=== PATIENT | female | born 1970 | race Caucasian/White ===

== ENCOUNTER 2016-12-21 12:53 | Outpatient (CLI) | payer MEDICARE | END 2016-12-21 12:54 | disposition critical access hospital (66) | LOC: EMS 12:53 | PROVIDERS: ATTEND Surgery | DX: R60.0 Localized edema (principal); M79.605 Pain in left leg; M79.604 Pain in right leg | CPT/HCPCS: A0425; A0429 ==

== ENCOUNTER 2016-12-21 13:10 | Inpatient (IN) | payer MEDICARE ==
[2016-12-21] MEDS ORDERED: FUROSEMIDE 40 MG/4 ML VIAL IVP STA (13:40)
--- NOTE | 2016-12-21 13:43 | ED Physician Documentation ---
History of Present Illness - Stated complaint Stated Complaint: JANELL LEG PX - Chief complaint Chief Complaint: Ext Problem - History obtained from History obtained from: Patient - History of Present Illness Timing: Other (This is a 46-year-old woman who presents by ambulance. She has a history of gastric bypass and multiple other abdominal surgeries and chronic pedal edema, she is visiting here from [place]. She states she is often hospitalized for a variety of reasons, because of the trip out and being in a chair her chronic pedal edema is much worse and she is unable to walk or bear weight. She is required a [address] here. She does have some dyspnea with this.) Review of Systems Ten Systems: 10 systems reviewed and negative Constitutional: denies: Fever, Chills Cardiac: reports: Pedal edema, Calf pain. denies: Chest pain / pressure, Palpitations Respiratory: reports: Dyspnea. denies: Cough GI: denies: Abdominal Pain, Nausea : denies: Dysuria PD PAST MEDICAL HISTORY - Past Medical History Past Medical History: Yes Other Past Medical History: Firbomyalgia - Past Surgical History Past Surgical History: Yes General: Bowel surgery, Gastric surgery - Present Medications Home Medications: Ambulatory Orders Medication Instructions Recorded Confirmed Furosemide [Lasix] 1 tab PO DAILY 12/21/16 12/21/16 Morphine Sulfate in 0.9 % NaCl 30 mg PO BID 12/21/16 12/21/16 [Morphine-Ns 30 mg/30 ml] Pregabalin [Lyrica] 200 mg PO DAILY 12/21/16 12/21/16 - Allergies Allergies/Adverse Reactions: Allergies Allergy/AdvReac Type Severity Reaction Status Date / Time No Known Drug Allergies Allergy Verified 12/21/16 13:35 - Social History Does the pt drink ETOH?: No Does the pt have substance abuse?: No - Family History Family history: reports: Non contributory PD ED PE NORMAL - Vitals Vital signs reviewed: Yes - General General: Alert and oriented X 3, No acute distress, Other (Sequela of prior weight loss) - HEENT HEENT: PERRL, EOMI - Neck Neck: Supple, no meningeal sign, No bony TTP - Cardiac Cardiac: RRR, No murmur - Respiratory Respiratory: No respiratory distress, Clear bilaterally - Abdomen Abdomen: Soft, Non tender - Extremities Extremities: Other (Massive lower extremity anasarca up to the inguinal ligaments) - Neuro Neuro: Alert and oriented X 3, Normal speech - Psych Psych: Normal mood, Normal affect Results - Vitals Vitals: Vital Signs - 24 hr 12/21/16 13:11 Temperature 36.4 C L Heart Rate 78 Respiratory 16 Rate Blood Pressure 103/72 O2 Saturation 100 Oxygen O2 Source Room air - Labs Labs: Laboratory Tests 12/21/16 12/21/16 13:40 13:40 WBC 7.9 RBC 4.48 Hgb 12.8 Hct 38.7 MCV 86.6 MCH 28.7 MCHC 33.2 RDW 15.2 H Plt Count 213 MPV 9.1 Neut # 5.4 Lymph # 2.1 [place] # 0.4 Eos # 0.0 Baso # 0.0 Absolute Nucleated RBC 0.00 Nucleated RBCs 0.0 Sodium 129 L Potassium 4.2 Chloride 96 L Carbon Dioxide 26 Anion Gap 7.0 BUN 11 Creatinine 0.6 Estimated GFR (MDRD) 107 Glucose 112 H Calcium 7.7 L Magnesium 1.7 Total Bilirubin 0.9 AST 27 ALT 54 Alkaline Phosphatase 118 Total Protein 4.3 L Albumin 1.3 L Globulin 3.0 Albumin/Globulin Ratio 0.4 L Lipase 12 L Procedures - General procedure General procedure: She was difficult for IV access, I personally placed a long 20-gauge IV in the deep right brachial vein using real-time ultrasound guidance which aliyah blood easily and flushed well. PD MEDICAL DECISION MAKING - ED course ED course: 46-year-old woman [place] of state presents with anasarca, likely due mostly to hypoalbuminemia from prior gastric bypass. The anasarca is so bad that she is unable to walk her functionary basically even transfer without assistance. She was administered IV Lasix and albumin. Called to the hospitalist for admission at 2:40 PM. Departure - Departure Disposition: 66 [facility] DC/Xfer Clinical Impression: Anasarca, Hypoalbuminemia due to protein-calorie malnutrition Condition: Serious
[2016-12-21] MEDS ORDERED: FUROSEMIDE 40 MG/4 ML VIAL ONE (13:47)
[2016-12-21 13:49] LABS: BASOPHILS % (AUTO) 0.6 %; EOSINOPHILS % (AUTO) 0.3 %; HCT - HEMATOCRIT 38.7 % (37.0-47.0); HGB - HEMOGLOBIN 12.8 g/dL (12.0-16.0); LYMPHOCYTES # (AUTO) 2.1 10^3/uL (1.5-3.5); MEAN CORPUSCULAR HEMOGLOBIN 28.7 pg (27.0-31.0); MEAN CORPUSCULAR HGB CONC 33.2 g/dL (32.0-36.0); MEAN CORPUSCULAR VOLUME 86.6 fL (81.0-99.0); MEAN PLATELET VOLUME 9.1 fL (7.9-10.8); MONOCYTES # (AUTO) 0.4 10^3/uL (0.0-1.0); MONOCYTES % (AUTO) 4.5 %; NEUTROPHILS # (AUTO) 5.4 10^3/uL (1.5-6.6); NEUTROPHILS % (AUTO) 68.6 %; RED BLOOD COUNT 4.48 10^6/uL (4.20-5.40); RED CELL DISTRIBUTION WIDTH 15.2 % (12.0-15.0); UNCORRECTED WHITE BLOOD COUNT 7.9 x10^3/uL; WHITE BLOOD COUNT 7.9 x10^3/uL (4.8-10.8)
[2016-12-21 14:09] LABS: ALBUMIN/GLOBULIN RATIO 0.4 (1.0-2.2); BILIRUBIN,TOTAL 0.9 mg/dL (0.2-1.0); CALCIUM 7.7 mg/dL (8.5-10.3); CREATININE 0.6 mg/dL (0.4-1.0); MAGNESIUM 1.7 mg/dL (1.7-2.8); POTASSIUM 4.2 mmol/L (3.5-5.0); TOTAL PROTEIN 4.3 g/dL (6.7-8.2)
[2016-12-21] MEDS ORDERED: ALBUMIN 25% 50 ML IV STA (14:18)
[2016-12-21] MEDS ORDERED: HYDROcod/ACETAM 5/325 MG TABLET PO PRN (15:12)
[2016-12-21] MEDS ORDERED: ACETAMINOPHEN 325 MG TABLET PO PRN (15:12)
[2016-12-21 15:43] LABS: INR 1.7 (0.8-1.2)
--- NOTE | 2016-12-21 17:28 | XRAY Preliminary Report ---
Exam: XR Chest 2 View PA/LAT IMPRESSION: There appears to be a right upper lobe pulmonary nodule measuring 1 cm. Differential incl udes overlapping structures. A chest CT is recommended to further evaluate for possible malignancy. O therwise, no acute pulmonary findings are seen. [facility] SITE ID: [id number]
--- NOTE | 2016-12-21 17:30 | XRAY Report ---
EXAM: CHEST RADIOGRAPHY EXAM DATE: 12/21/2016 04:54 PM. CLINICAL HISTORY: Dyspnea. COMPARISON: None. TECHNIQUE: 2 views. FINDINGS: Lungs/Pleura: There appears to be a right upper lobe pulmonary nodule measuring 1 cm. Differential in cludes overlapping structures. A chest CT is recommended to further evaluate for possible malignancy. Otherwise, no acute pulmonary findings are seen. No pleural effusion or pneumothorax. Mediastinum: Heart and mediastinal contours are unremarkable. Other: Minimal anterior wedging at T8, age indeterminate, appears chronic. IMPRESSION: There appears to be a right upper lobe pulmonary nodule measuring 1 cm. Differential incl udes overlapping structures. A chest CT is recommended to further evaluate for possible malignancy. O therwise, no acute pulmonary findings are seen. [facility] Referring Provider Line: [phone] SITE ID: [id number]
[2016-12-21] MEDS: FUROSEMIDE 40 MG/4 ML VIAL IVP SCH (17:33)
[2016-12-21] MEDS: SODIUM CHLORIDE FLUSH 0.9% 10 ML SYRINGE IVP SCH (17:33)
[2016-12-21] MEDS ORDERED: MECLIZINE 12.5 MG TABLET PO PRN (17:43)
[2016-12-21 19:03] LABS: BILIRUBIN,URINE NEGATIVE (NEGATIVE)
[2016-12-21 19:05] LABS: UA CHARGE (STRIP ONLY) YES; UR CULTURE IF IND NOT INDICATED
[2016-12-21] MEDS: POTASSIUM CHLORIDE 20 MEQ/15 ML UDC PO SCH ×2 (20:10→20:57)
[2016-12-21] MEDS ORDERED: MIN OIL/DIMETHICON/COCONUT OIL 92 GM TUBE TOP ONE (20:30)
[2016-12-21] MEDS ORDERED: MORPHINE IR 15 MG TABLET PO SCH (21:00)
[2016-12-21] MEDS ORDERED: PREGABALIN 100 MG CAPSULE PO SCH (21:00)
[2016-12-21] MEDS: FERROUS SULFATE 325 MG TABLET PO SCH (21:09)
[2016-12-21] MEDS: RIVAROXABAN 10 MG TABLET PO SCH (21:09)
[2016-12-21] MEDS: CHOLECALCIFEROL 400 UNIT TABLET PO SCH (21:09)
[2016-12-21] MEDS: AMITRIPTYLINE 25 MG TABLET PO SCH (21:09)
[2016-12-21] MEDS: CALCIUM CARBONATE CHEW 500 MG TABLET PO SCH (21:10)
[2016-12-21] MEDS: DOCUSATE SODIUM 100 MG CAPSULE PO SCH (21:10)
[2016-12-21] MEDS: traZODone 50 MG TABLET PO SCH (21:19)
[2016-12-22] MEDS: HYDROcod/ACETAM 10 MG/325 MG TABLET PO PRN ×3 (01:07→23:48)
[2016-12-22 06:21] LABS: BASOPHILS # (AUTO) 0.1 10^3/uL (0.0-0.1); BASOPHILS % (AUTO) 0.6 %; EOSINOPHILS % (AUTO) 0.2 %; HCT - HEMATOCRIT 34.2 % (37.0-47.0); HGB - HEMOGLOBIN 11.2 g/dL (12.0-16.0); LYMPHOCYTES # (AUTO) 2.7 10^3/uL (1.5-3.5); MEAN CORPUSCULAR HEMOGLOBIN 28.5 pg (27.0-31.0); MEAN CORPUSCULAR HGB CONC 32.7 g/dL (32.0-36.0); MEAN CORPUSCULAR VOLUME 87.1 fL (81.0-99.0); MEAN PLATELET VOLUME 9.5 fL (7.9-10.8); MONOCYTES # (AUTO) 0.5 10^3/uL (0.0-1.0); MONOCYTES % (AUTO) 4.8 %; NEUTROPHILS # (AUTO) 6.7 10^3/uL (1.5-6.6); NEUTROPHILS % (AUTO) 67.4 %; RED BLOOD COUNT 3.92 10^6/uL (4.20-5.40)
[2016-12-22 06:27] LABS: INR 2.9 (0.8-1.2); PT - PROTHROMBIN TIME 33.4 secs (9.9-12.6)
[2016-12-22] MEDS: FERROUS SULFATE 325 MG TABLET PO SCH ×3 (06:33→23:07)
[2016-12-22] MEDS: PANTOPRAZOLE 40 MG TABLET PO SCH (06:33)
[2016-12-22 06:34] LABS: ALBUMIN/GLOBULIN RATIO 0.6 (1.0-2.2); BILIRUBIN,TOTAL 0.9 mg/dL (0.2-1.0); CALCIUM 7.4 mg/dL (8.5-10.3); CREATININE 0.7 mg/dL (0.4-1.0); POTASSIUM 3.5 mmol/L (3.5-5.0); TOTAL PROTEIN 3.6 g/dL (6.7-8.2)
[2016-12-22] MEDS: FUROSEMIDE 40 MG/4 ML VIAL IVP SCH ×2 (06:36→13:39)
[2016-12-22] MEDS: POTASSIUM CHLORIDE 20 MEQ/15 ML UDC PO SCH (06:37)
[2016-12-22] MEDS: SODIUM CHLORIDE FLUSH 0.9% 10 ML SYRINGE IVP SCH ×3 (06:41→23:19)
[2016-12-22] MEDS ORDERED: ALBUMIN 25% 50 ML IV SCH (06:45)
[2016-12-22] MEDS ORDERED: POLYETHYLENE GLYCOL 3350 17 GM PACKET PO SCH (09:00)
[2016-12-22] MEDS: MORPHINE IR 15 MG TABLET PO SCH ×4 (10:14→23:07)
[2016-12-22] MEDS: PREGABALIN 100 MG CAPSULE PO SCH ×2 (10:15→17:57)
[2016-12-22] MEDS: THIAMINE 100 MG TABLET PO SCH (10:16)
[2016-12-22] MEDS: CHOLECALCIFEROL 400 UNIT TABLET PO SCH ×2 (10:16→23:06)
[2016-12-22] MEDS: FOLIC ACID 1 MG TABLET PO SCH (10:18)
[2016-12-22] MEDS: ONDANSETRON 4 MG/2 ML VIAL IVP PRN (10:24)
[2016-12-22] MEDS: SODIUM CHLORIDE FLUSH 0.9% 10 ML SYRINGE IVP PRN (10:27)
[2016-12-22] MEDS: CALCIUM CARBONATE CHEW 500 MG TABLET PO SCH ×2 (10:27→23:06)
[2016-12-22] MEDS: DOCUSATE SODIUM 100 MG CAPSULE PO SCH ×2 (10:29→23:07)
[2016-12-22] MEDS: POLYETHYLENE GLYCOL 3350 17 GM PACKET PO SCH ×2 (10:31→17:57)
--- NOTE | 2016-12-22 11:25 | PROVIDER PROGRESS NOTE ---
Assessment/Plan - Problem List (1) Anasarca Assessment/Plan: She had 4000 ml neg overnight. Her weight this am is 73.4Kg. She is able to wrestle herself out of bed this am and stand unassisted to get on the scale for a standing weight. Will continue the diuresis. (2) Hypoalbuminemia due to protein-calorie malnutrition Assessment/Plan: She had slight improvement in her albumin to 1.4 from 1.3 Would do 12 hr urine collection for protein, however her qualitative protein is negative son not needed. - Current Meds Current Meds: Current Medications Generic Name Dose Route Start Last Admin Trade Name Freq PRN Reason Stop Dose Admin Acetaminophen/Hydrocodone Bitart 1 tab 12/21/16 15:12 12/22/16 06:33 [place] 10 Mg/325 Mg PO 1 tab Q4HR PRN Administration Pain 8 to 10 Amitriptyline HCl 25 mg 12/21/16 21:00 12/21/16 21:09 Elavil PO 25 mg QPM ARELY Administration Calcium Carbonate/Glycine 500 mg 12/21/16 21:00 12/22/16 10:27 Tums PO 500 mg BID ARELY Administration Cholecalciferol 200 unit 12/21/16 21:00 12/22/16 10:16 Vitamin D3 PO 200 unit BID ARELY Administration Docusate Sodium 100 mg 12/21/16 21:00 12/22/16 10:29 Colace 100mg Capsule PO 100 mg BID ARELY Administration Ferrous Sulfate 325 mg 12/21/16 22:00 12/22/16 06:33 Feosol PO 325 mg TID ARELY Administration Folic Acid 1 mg 12/22/16 09:00 12/22/16 10:18 PO 1 mg DAILY ARELY Administration Furosemide 40 mg 12/21/16 16:00 12/22/16 06:36 Lasix Inj 40 Mg Vial IVP 40 mg BIDDIURETIC ARELY Administration Morphine Sulfate 30 mg 12/22/16 09:00 12/22/16 10:14 Ms Ir PO 30 mg QID ARELY Administration Ondansetron HCl 4 mg 12/21/16 15:12 12/22/16 10:24 Zofran Inj IVP 4 mg Q4HR PRN Administration Nausea / Vomiting Pantoprazole Sodium 40 mg 12/22/16 07:00 12/22/16 06:33 Protonix PO 40 mg QDAC ARELY Administration Polyethylene Glycol 17 gm 12/22/16 09:00 12/22/16 10:31 Miralax PO Not Given 0900,1800 ARELY Pregabalin 200 mg 12/22/16 09:00 12/22/16 10:15 Lyrica PO 200 mg 0900,1800 ARELY Administration Rivaroxaban 20 mg 12/21/16 21:00 12/21/16 21:09 Xarelto PO 20 mg QPM ARELY Administration Sodium Chloride 10 ml 12/21/16 15:12 12/22/16 10:27 Normal Saline Flush 0.9% IVP 10 ml PRN PRN Administration NEEDED PER PROVIDER ORDERS Sodium Chloride 10 ml 12/21/16 22:00 12/22/16 06:41 Normal Saline Flush 0.9% IVP 10 ml Q8HR ARELY Administration Thiamine HCl 100 mg 12/22/16 09:00 12/22/16 10:16 Vitamin B-1 PO 100 mg DAILY ARELY Administration Trazodone HCl 25 mg 12/21/16 21:15 12/21/16 21:19 Desyrel PO 25 mg QPM ARELY Administration - Lab Result Fish Bone Diagrams: 12/22/16 05:40 12/22/16 05:40 - Additional Planning My Orders: My Active Orders 12/21/16 15:10 MISC TEST QUEST AMBIENT [REFLAB] Routine 12/21/16 16:00 FUROSEMIDE INJ 40mg VIAL [LASIX INJ 40 mg VIAL] 40 mg IVP BIDDIURETIC 12/21/16 17:43 Meclizine [Antivert] 25 mg PO TID PRN 12/21/16 21:00 Amitriptyline [Elavil] 25 mg PO QPM Calcium Carbonate [Tums] 500 mg PO BID Cholecalciferol [Vitamin D3] 200 unit PO BID Docusate Sodium 100Mg Capsule [Colace 100Mg Capsule] 100 mg PO BID Rivaroxaban [Xarelto] 20 mg PO QPM 12/21/16 22:00 Ferrous Sulfate [Feosol] 325 mg PO TID 12/22/16 06:26 Miscellaenous Nursing Order [RC] QSHIFT 12/22/16 07:00 Pantoprazole [Protonix] 40 mg PO QDAC 12/22/16 08:00 Potassium Chloride [K-Dur] 20 meq PO TIDWM 12/22/16 09:00 Dietary [Nutrition Consult] [CONS] Routine Folic Acid 1 mg PO DAILY Morphine Ir [Ms Ir] 30 mg PO QID Thiamine [Vitamin B-1] 100 mg PO DAILY 12/22/16 Lunch DIET [Regular Diet] [DIET] 12/23/16 05:00 CBC - COMP BLD CT W/AUTO DIFF [HEME] DAILYLAB COMPREHENSIVE METABOLIC PANEL [CHEM] DAILYLAB PT WITH INR [COAG] DAILYLAB 12/24/16 05:00 CBC - COMP BLD CT W/AUTO DIFF [HEME] DAILYLAB COMPREHENSIVE METABOLIC PANEL [CHEM] DAILYLAB PT WITH INR [COAG] DAILYLAB 12/25/16 05:00 CBC - COMP BLD CT W/AUTO DIFF [HEME] DAILYLAB COMPREHENSIVE METABOLIC PANEL [CHEM] DAILYLAB PT WITH INR [COAG] DAILYLAB Subjective - Subjective Patient Reports: Feeling Better, Resting Comfortably Objective Vital Signs: Vital Signs - 24 hr 12/21/16 12/21/16 12/21/16 16:38 17:10 20:38 Temperature 36.3 C L 36.5 C 36.4 C L Heart Rate 121 H Heart Rate [ 110 H 114 H Brachial] Respiratory 18 20 20 Rate Blood Pressure 97/74 Blood Pressure 105/77 139/67 H [Left Brachial artery] O2 Saturation 100 100 100 12/22/16 12/22/16 12/22/16 01:23 06:30 08:16 Temperature 36.3 C L 36.4 C L 36.5 C Heart Rate Heart Rate [ 108 H 106 H 106 H Brachial] Respiratory 18 18 16 Rate Blood Pressure Blood Pressure 96/72 144/65 H 88/60 L [Left Brachial artery] O2 Saturation 93 100 95 Oxygen O2 Source Room air I&O (Last 24 Hrs): Intake and Output Totals x24h 12/20/16 12/21/16 12/22/16 23:59 23:59 23:59 Intake Total 640 500 Output Total 4720 400 Balance -4080 100 General: Alert, Oriented x3 HEENT: PERRLA, EOMI Neck: No JVD, No thyromegaly Neuro: Alert, Oriented Times 3 Cardiovascular: Regular rate, No murmurs Respiratory: No respiratory distress, Breath sounds nml Abdomen: Normal bowel sounds, Soft, No tenderness Skin: No rashes, No breakdown - Results Results: Laboratory Results WBC 10.0 x10^3/uL (4.8-10.8) 12/22/16 05:40 RBC 3.92 10^6/uL (4.20-5.40) L 12/22/16 05:40 Hgb 11.2 g/dL (12.0-16.0) L 12/22/16 05:40 Hct 34.2 % (37.0-47.0) L 12/22/16 05:40 MCV 87.1 fL (81.0-99.0) 12/22/16 05:40 MCH 28.5 pg (27.0-31.0) 12/22/16 05:40 MCHC 32.7 g/dL (32.0-36.0) 12/22/16 05:40 RDW 15.0 % (12.0-15.0) 12/22/16 05:40 Plt Count 165 10^3/uL (130-450) 12/22/16 05:40 MPV 9.5 fL (7.9-10.8) 12/22/16 05:40 Neut # 6.7 10^3/uL (1.5-6.6) H 12/22/16 05:40 Lymph # 2.7 10^3/uL (1.5-3.5) 12/22/16 05:40 [place] # 0.5 10^3/uL (0.0-1.0) 12/22/16 05:40 Eos # 0.0 10^3/uL (0.0-0.7) 12/22/16 05:40 Baso # 0.1 10^3/uL (0.0-0.1) 12/22/16 05:40 Absolute Nucleated RBC 0.00 x10^3/uL 12/22/16 05:40 Nucleated RBCs 0.0 /100WBC 12/22/16 05:40 PT 33.4 secs (9.9-12.6) H 12/22/16 05:40 INR 2.9 (0.8-1.2) H 12/22/16 05:40 Sodium 134 mmol/L (135-145) L 12/22/16 05:40 Potassium 3.5 mmol/L (3.5-5.0) 12/22/16 05:40 Chloride 99 mmol/L (101-111) L 12/22/16 05:40 Carbon Dioxide 29 mmol/L (21-32) 12/22/16 05:40 Anion Gap 6.0 (6-13) 12/22/16 05:40 BUN 12 mg/dL (6-20) 12/22/16 05:40 Creatinine 0.7 mg/dL (0.4-1.0) 12/22/16 05:40 Estimated GFR (MDRD) 90 (>89) 12/22/16 05:40 Glucose 93 mg/dL (70-100) 12/22/16 05:40 Calcium 7.4 mg/dL (8.5-10.3) L 12/22/16 05:40 Magnesium 1.7 mg/dL (1.7-2.8) 12/21/16 13:40 Total Bilirubin 0.9 mg/dL (0.2-1.0) 12/22/16 05:40 AST 22 IU/L (10-42) 12/22/16 05:40 ALT 43 IU/L (10-60) 12/22/16 05:40 Alkaline Phosphatase 98 IU/L (42-121) 12/22/16 05:40 Total Protein 3.6 g/dL (6.7-8.2) L 12/22/16 05:40 Albumin 1.4 g/dL (3.2-5.5) L 12/22/16 05:40 Globulin 2.2 g/dL (2.1-4.2) 12/22/16 05:40 Albumin/Globulin Ratio 0.6 (1.0-2.2) L 12/22/16 05:40 Lipase 12 U/L (22-51) L 12/21/16 13:40 Urine Color YELLOW 12/21/16 Unknown Urine Clarity CLEAR (CLEAR) 12/21/16 Unknown Urine pH 6.0 PH (5.0-7.5) 12/21/16 Unknown Ur Specific [place] 1.010 (1.002-1.030) 12/21/16 Unknown Urine Protein NEGATIVE mg/dL (NEGATIVE) 12/21/16 Unknown Urine Glucose (UA) NEGATIVE mg/dL (NEGATIVE) 12/21/16 Unknown Urine Ketones NEGATIVE mg/dL (NEGATIVE) 12/21/16 Unknown Urine Occult Blood NEGATIVE (NEGATIVE) 12/21/16 Unknown Urine Nitrite NEGATIVE (NEGATIVE) 12/21/16 Unknown Urine Bilirubin NEGATIVE (NEGATIVE) 12/21/16 Unknown Urine Urobilinogen 0.2 (NORMAL) E.U./dL (NORMAL) 12/21/16 Unknown Ur Leukocyte Esterase NEGATIVE (NEGATIVE) 12/21/16 Unknown Ur Microscopic Review NOT INDICATED 12/21/16 Unknown Urine Culture Comments NOT INDICATED 12/21/16 Unknown
[2016-12-22] MEDS: POTASSIUM CHLORIDE 20 MEQ TABLET PO SCH ×3 (12:09→17:57)
--- NOTE | 2016-12-22 20:05 | HISTORY & PHYSICAL EXAMINATION ---
DATE OF ADMISSION: 12/21/2016 CHIEF COMPLAINT: Leg swelling. IDENTIFYING INFORMATION: The patient's primary source of history appears to be questionable reliabili ty, though cogent, and unclear if complete. Her uncle is there who provides a small amount of additio nal material. There is also information obtained in the handoff from the emergency department bev roger, the patient's history of present illness, all will be used in addition to the data collected karissa mao this visit in evaluation of this person and preparation of the document. HISTORY OF PRESENT ILLNESS: The patient is a 46-year-old female who comes in because she came from [facility] on a train and said she did not move at all, only ate mashed food because she has a special diet, and noted that she had redness and irritation between her legs, a sore, she put Cortaid on it. She came to her uncle's place for a "family reunion." She then noted that she had increased swelling , was there for about 4 days and the swelling got worse and she could not stand, so she was brought i n by ambulance. The patient denies any pain except chronic back pain for which she takes morphine. Th e patient also says standing and walking even makes her short of breath. REVIEW OF SYSTEMS: She denies fever or chills. Denies sore throat. Denies cough. Does not have any ch est pain, palpitations. The patient's rest of the complete review of systems is negative as queried. PAST MEDICAL HISTORY: Remarkable for morbid obesity, fibromyalgia. DVT's and is on a 10a inhibitor. SURGERIES: Gastric bypass. ALLERGIES; NONE KNOWN. MEDICATIONS: 1. Morphine 30 mg 4 times a day. 2. Potassium chloride oral solution 20 meq daily. 3. Iron 325 mg 3 times a day. 4. Thiamine 100 mg daily. 5. Folic acid 1 mg daily. 6. Lasix 20 mg daily. 7. Nexium 40 mg daily. 8. Xarelto 20 mg q. p.m. 9. Meclizine 25 mg t.i.d. p.r.n. 10. DSS 100 mg b.i.d. 11. Vitamin D3 twice a day. 12. Lyrica 200 mg twice a day. 13. Amitriptyline 25 mg at bedtime. PERSONAL AND SOCIAL HISTORY: She does not smoke, does not drink alcohol. She has lived in [place] most of her life. Says she was born in [place], [place]. At age 12 her mother decided to go t [facility] and no longer take care of her daughter and she was on the streets from that point in time odilia heck from family to family. FAMILY HISTORY: Sketchy, but there appears to be stroke, diabetes in the family. PHYSICAL EXAMINATION: VITAL SIGNS: 36.4, 78, 16, 103/72, O2 saturation is 100% on room air. HEENT: The patient appears stated age or older. Eyes: EOM's within normal limits, PERRLA. Nonicteric. Mouth and throat: Moist mucous membranes. Poor dentition. NECK: No lymphadenopathy, no thyromegaly, no bruits. CHEST WALL: Chest wall, nontender. Symmetric. ABDOMEN: Bilaterally abdomen is soft, some mild tenderness diffusely. Bowel sounds are heard. RECTAL/Genital exam not done. BREAST EXAM is not done. EXTREMITIES: She has 3+edema into the thighs. NEURO: Cognition intact. Cranial nerves intact. SKIN: No suspicious lesions except for a blister inside the thigh on the right side. DIAGNOSTICS; Shows a white count of 7.9, 12 and 38 hemoglobin and hematocrit. Platelets are 213, sodi um 129, potassium 4.2, chloride 96, CO2 is 26, BUN 11, creatinine 0.6, glucose 112, calcium 7.7, her albumin she was noted low at 1.3. The patient's liver enzymes were normal. SUMMARY: This is a 46 year old female who has a past medical history of morbid obesity and multiple o ther surgeries she says for corrections. The patient subacutely had multiple hospitalizations for a v ariety of conditions. Recently the patient has a lot of swelling in her legs and lower abdomen and is unable to get up and walk by himself, giving he can only a couple feet even with th assistance of 2 people. DIAGNOSES: 1. Anasarca, 2, Hyponatremia. Will be monitored. Sodium will be replaced as needed with the diuresis. Potassium ma y also be monitored. 3. Chronic pain. 4. Generalized weakness which is at least partly due to the intenseedema. The patient will get diures is, with the low albumin it will likely be more effective with infusion cells, albumin, as well. The patient will get physical therapy, as well. The patient's morbid obesity has already been addressed w ith gastric bypass will have to be investigated if there are other morbidities which are causing her problems. 5. The patient's morbid obesity will not be addressed at this time. 6. Severe protein malnutrition. The patient will have dietary consult due to malnutrition. The patien t needs to have protein. HOSPITAL ISSUES: 1. CODE STATUS, SHE IS FULL CODE. 2. VTE PROPHYLAXIS: Will be the Xarelto. 3. Diet which will be protein supplementation regular diet. The patient insists later that she has to be on a puree diet. 4. Activity, as tolerated. Guided by physical therapy. 5. Tubes and lines which will be peripheral IV at this point, will add in a Cooper catheter. 6. Hospital status: Given the severity of her disease and comorbidities with the hyponatremia, the an asarca, the previous history of DVTs and the ongoing anticoagulation, needs at least 2 mights for det ermination of therapies, therapeutic results an a safe disposition Therefor, she is inpatient status. 7. Expected length of stay is 2 nights. 8: Disposition is excepted to be to home or the place she is living in currently and then to home. JOB #: [id number] EXT JOB #:[id number]
[2016-12-22] MEDS: AMITRIPTYLINE 25 MG TABLET PO SCH (23:06)
[2016-12-22] MEDS: RIVAROXABAN 10 MG TABLET PO SCH (23:07)
[2016-12-22] MEDS: traZODone 50 MG TABLET PO SCH (23:07)
[2016-12-23] MEDS: ONDANSETRON 4 MG/2 ML VIAL IVP PRN ×2 (02:05→18:01)
[2016-12-23] MEDS: SODIUM CHLORIDE FLUSH 0.9% 10 ML SYRINGE IVP PRN (02:06)
[2016-12-23] MEDS: FUROSEMIDE 40 MG/4 ML VIAL IVP SCH ×2 (07:27→16:26)
[2016-12-23] MEDS: SODIUM CHLORIDE FLUSH 0.9% 10 ML SYRINGE IVP SCH ×3 (07:28→18:01)
[2016-12-23] MEDS: FERROUS SULFATE 325 MG TABLET PO SCH ×2 (07:28→13:36)
[2016-12-23] MEDS: PANTOPRAZOLE 40 MG TABLET PO SCH (07:28)
[2016-12-23] MEDS: MORPHINE IR 15 MG TABLET PO SCH ×3 (09:46→21:11)
[2016-12-23] MEDS: PREGABALIN 100 MG CAPSULE PO SCH ×2 (09:46→21:11)
[2016-12-23] MEDS: POLYETHYLENE GLYCOL 3350 17 GM PACKET PO SCH ×2 (09:47→20:41)
[2016-12-23] MEDS: CHOLECALCIFEROL 400 UNIT TABLET PO SCH ×2 (09:48→21:05)
[2016-12-23] MEDS: POTASSIUM CHLORIDE 20 MEQ TABLET PO SCH ×3 (09:48→21:10)
[2016-12-23] MEDS: CALCIUM CARBONATE CHEW 500 MG TABLET PO SCH ×2 (09:48→21:11)
[2016-12-23] MEDS: DOCUSATE SODIUM 100 MG CAPSULE PO SCH ×2 (09:48→21:11)
[2016-12-23] MEDS: FOLIC ACID 1 MG TABLET PO SCH (09:48)
[2016-12-23] MEDS: THIAMINE 100 MG TABLET PO SCH (09:48)
[2016-12-23 14:40] LABS: BASOPHILS # (AUTO) 0.1 10^3/uL (0.0-0.1); BASOPHILS % (AUTO) 1.1 %; EOSINOPHILS % (AUTO) 0.8 %; HCT - HEMATOCRIT 28.8 % (37.0-47.0); HGB - HEMOGLOBIN 9.5 g/dL (12.0-16.0); LYMPHOCYTES # (AUTO) 2.3 10^3/uL (1.5-3.5); LYMPHOCYTES % (AUTO) 40.8 %; MEAN CORPUSCULAR HEMOGLOBIN 28.3 pg (27.0-31.0); MEAN CORPUSCULAR HGB CONC 33.1 g/dL (32.0-36.0); MEAN CORPUSCULAR VOLUME 85.6 fL (81.0-99.0); MEAN PLATELET VOLUME 8.9 fL (7.9-10.8); MONOCYTES # (AUTO) 0.3 10^3/uL (0.0-1.0); MONOCYTES % (AUTO) 6.2 %; NEUTROPHILS # (AUTO) 2.8 10^3/uL (1.5-6.6); NEUTROPHILS % (AUTO) 51.1 %; RED BLOOD COUNT 3.37 10^6/uL (4.20-5.40); UNCORRECTED WHITE BLOOD COUNT 5.6 x10^3/uL; WHITE BLOOD COUNT 5.6 x10^3/uL (4.8-10.8)
[2016-12-23 14:49] LABS: INR 1.3 (0.8-1.2); PT - PROTHROMBIN TIME 14.3 secs (9.9-12.6)
[2016-12-23 14:52] LABS: ALBUMIN/GLOBULIN RATIO 0.6 (1.0-2.2); BILIRUBIN,TOTAL 0.7 mg/dL (0.2-1.0); CALCIUM 7.2 mg/dL (8.5-10.3); CREATININE 0.7 mg/dL (0.4-1.0); POTASSIUM 3.2 mmol/L (3.5-5.0); TOTAL PROTEIN 3.5 g/dL (6.7-8.2)
--- NOTE | 2016-12-23 15:49 | PROVIDER PROGRESS NOTE ---
Assessment/Plan - Problem List (1) Anasarca Assessment/Plan: Raina's swelling is much improved. Her weight gain from yesterday to today is likely erroneous. She refused her lab draw this am so did not give her the am dose of lasix She allowed a blood draw this afternoon and had good GFR but mildly low KCL. She will get her Lasix this afternoon. (2) Hypoalbuminemia due to protein-calorie malnutrition Assessment/Plan: Her albumin remains very low. She is eating better at times but has been somnolent. - Current Meds Current Meds: Current Medications Generic Name Dose Route Start Last Admin Trade Name Freq PRN Reason Stop Dose Admin Amitriptyline HCl 25 mg 12/21/16 21:00 12/22/16 23:06 Elavil PO Not Given QPM ARELY Calcium Carbonate/Glycine 500 mg 12/21/16 21:00 12/23/16 09:48 Tums PO 500 mg BID ARELY Administration Cholecalciferol 200 unit 12/21/16 21:00 12/23/16 09:48 Vitamin D3 PO 200 unit BID ARELY Administration Docusate Sodium 100 mg 12/21/16 21:00 12/23/16 09:48 Colace 100mg Capsule PO 100 mg BID ARELY Administration Folic Acid 1 mg 12/22/16 09:00 12/23/16 09:48 PO 1 mg DAILY ARELY Administration Furosemide 40 mg 12/21/16 16:00 12/23/16 07:27 Lasix Inj 40 Mg Vial IVP Not Given BIDDIURETIC ARELY Ondansetron HCl 4 mg 12/21/16 15:12 12/23/16 02:05 Zofran Inj IVP 4 mg Q4HR PRN Administration Nausea / Vomiting Pantoprazole Sodium 40 mg 12/22/16 07:00 12/23/16 07:28 Protonix PO Not Given QDAC ARELY Polyethylene Glycol 17 gm 12/22/16 09:00 12/23/16 09:47 Miralax PO 17 gm 0900,1800 ARELY Administration Potassium Chloride 20 meq 12/22/16 08:00 12/23/16 13:36 K-Dur PO 20 meq TIDWM ARELY Administration Pregabalin 200 mg 12/22/16 09:00 12/23/16 09:46 Lyrica PO 200 mg 0900,1800 ARELY Administration Rivaroxaban 20 mg 12/21/16 21:00 12/22/16 23:07 Xarelto PO Not Given QPM ARELY Sodium Chloride 10 ml 12/21/16 15:12 12/23/16 02:06 Normal Saline Flush 0.9% IVP 10 ml PRN PRN Administration NEEDED PER PROVIDER ORDERS Sodium Chloride 10 ml 12/21/16 22:00 12/23/16 07:28 Normal Saline Flush 0.9% IVP Not Given Q8HR ARELY Thiamine HCl 100 mg 12/22/16 09:00 12/23/16 09:48 Vitamin B-1 PO 100 mg DAILY ARELY Administration - Lab Result Fish Bone Diagrams: 12/23/16 05:00 12/23/16 14:30 - Additional Planning My Orders: My Active Orders 12/23/16 08:40 CHLAMYDIA/GC RNA TMA [REFLAB] Routine 12/23/16 22:00 Morphine Ir [Ms Ir] 15 mg PO TID 12/24/16 05:00 CBC - COMP BLD CT W/AUTO DIFF [HEME] DAILYLAB COMPREHENSIVE METABOLIC PANEL [CHEM] DAILYLAB PT WITH INR [COAG] DAILYLAB 12/25/16 05:00 CBC - COMP BLD CT W/AUTO DIFF [HEME] DAILYLAB COMPREHENSIVE METABOLIC PANEL [CHEM] DAILYLAB PT WITH INR [COAG] DAILYLAB Subjective - Subjective Patient Reports: Resting Comfortably Nursing Reports: Sedated Objective Vital Signs: Vital Signs - 24 hr 12/22/16 12/22/16 12/22/16 16:22 16:23 18:23 Temperature 36.0 C L Heart Rate [ 106 H Brachial] Respiratory 6 L 8 L Rate Blood Pressure 89/60 L 84/60 L 88/50 L [Left Brachial artery] O2 Saturation 96 99 12/22/16 12/23/16 12/23/16 20:39 00:35 09:27 Temperature 36.6 C 36.4 C L 36.7 C Heart Rate [ 105 H 111 H 98 Brachial] Respiratory 7 L 19 18 Rate Blood Pressure 93/63 92/70 94/59 L [Left Brachial artery] O2 Saturation 98 100 100 Oxygen O2 Source Nasal cannula I&O (Last 24 Hrs): Intake and Output Totals x24h 12/21/16 12/22/16 12/23/16 23:59 23:59 23:59 Intake Total 640 1020 720 Output Total 4720 2950 650 Balance -4080 -1930 70 General: Alert, Cooperative HEENT: EOMI Neck: No JVD, No thyromegaly Neuro: Alert, Speech Slurred Cardiovascular: Regular rate, No murmurs Respiratory: No respiratory distress, Breath sounds nml Abdomen: Normal bowel sounds, Soft - Results Results: Laboratory Results WBC 5.6 x10^3/uL (4.8-10.8) 12/23/16 05:00 RBC 3.37 10^6/uL (4.20-5.40) L 12/23/16 05:00 Hgb 9.5 g/dL (12.0-16.0) L 12/23/16 05:00 Hct 28.8 % (37.0-47.0) L 12/23/16 05:00 MCV 85.6 fL (81.0-99.0) 12/23/16 05:00 MCH 28.3 pg (27.0-31.0) 12/23/16 05:00 MCHC 33.1 g/dL (32.0-36.0) 12/23/16 05:00 RDW 15.0 % (12.0-15.0) 12/23/16 05:00 Plt Count 147 10^3/uL (130-450) 12/23/16 05:00 MPV 8.9 fL (7.9-10.8) 12/23/16 05:00 Neut # 2.8 10^3/uL (1.5-6.6) 12/23/16 05:00 Lymph # 2.3 10^3/uL (1.5-3.5) 12/23/16 05:00 [place] # 0.3 10^3/uL (0.0-1.0) 12/23/16 05:00 Eos # 0.0 10^3/uL (0.0-0.7) 12/23/16 05:00 Baso # 0.1 10^3/uL (0.0-0.1) 12/23/16 05:00 Absolute Nucleated RBC 0.00 x10^3/uL 12/23/16 05:00 Nucleated RBCs 0.0 /100WBC 12/23/16 05:00 PT 14.3 secs (9.9-12.6) H 12/23/16 05:00 INR 1.3 (0.8-1.2) H 12/23/16 05:00 Sodium 133 mmol/L (135-145) L 12/23/16 14:30 Potassium 3.2 mmol/L (3.5-5.0) L 12/23/16 14:30 Chloride 99 mmol/L (101-111) L 12/23/16 14:30 Carbon Dioxide 28 mmol/L (21-32) 12/23/16 14:30 Anion Gap 6.0 (6-13) 12/23/16 14:30 BUN 11 mg/dL (6-20) 12/23/16 14:30 Creatinine 0.7 mg/dL (0.4-1.0) 12/23/16 14:30 Estimated GFR (MDRD) 90 (>89) 12/23/16 14:30 Glucose 105 mg/dL (70-100) H 12/23/16 14:30 Calcium 7.2 mg/dL (8.5-10.3) L 12/23/16 14:30 Magnesium 1.7 mg/dL (1.7-2.8) 12/21/16 13:40 Total Bilirubin 0.7 mg/dL (0.2-1.0) 12/23/16 14:30 AST 28 IU/L (10-42) 12/23/16 14:30 ALT 41 IU/L (10-60) 12/23/16 14:30 Alkaline Phosphatase 94 IU/L (42-121) 12/23/16 14:30 Total Protein 3.5 g/dL (6.7-8.2) L 12/23/16 14:30 Albumin 1.3 g/dL (3.2-5.5) L 12/23/16 14:30 Globulin 2.2 g/dL (2.1-4.2) 12/23/16 14:30 Albumin/Globulin Ratio 0.6 (1.0-2.2) L 12/23/16 14:30 Lipase 12 U/L (22-51) L 12/21/16 13:40 Urine Color YELLOW 12/21/16 Unknown Urine Clarity CLEAR (CLEAR) 12/21/16 Unknown Urine pH 6.0 PH (5.0-7.5) 12/21/16 Unknown Ur Specific [place] 1.010 (1.002-1.030) 12/21/16 Unknown Urine Protein NEGATIVE mg/dL (NEGATIVE) 12/21/16 Unknown Urine Glucose (UA) NEGATIVE mg/dL (NEGATIVE) 12/21/16 Unknown Urine Ketones NEGATIVE mg/dL (NEGATIVE) 12/21/16 Unknown Urine Occult Blood NEGATIVE (NEGATIVE) 12/21/16 Unknown Urine Nitrite NEGATIVE (NEGATIVE) 12/21/16 Unknown Urine Bilirubin NEGATIVE (NEGATIVE) 12/21/16 Unknown Urine Urobilinogen 0.2 (NORMAL) E.U./dL (NORMAL) 12/21/16 Unknown Ur Leukocyte Esterase NEGATIVE (NEGATIVE) 12/21/16 Unknown Ur Microscopic Review NOT INDICATED 12/21/16 Unknown Urine Culture Comments NOT INDICATED 12/21/16 Unknown
[2016-12-23] MEDS: AMITRIPTYLINE 25 MG TABLET PO SCH (21:06)
[2016-12-23] MEDS: RIVAROXABAN 10 MG TABLET PO SCH (21:11)
[2016-12-24 06:18] LABS: BASOPHILS # (AUTO) 0.1 10^3/uL (0.0-0.1); BASOPHILS % (AUTO) 0.8 %; EOSINOPHILS % (AUTO) 0.2 %; HCT - HEMATOCRIT 30.9 % (37.0-47.0); HGB - HEMOGLOBIN 10.2 g/dL (12.0-16.0); LYMPHOCYTES # (AUTO) 2.4 10^3/uL (1.5-3.5); LYMPHOCYTES % (AUTO) 33.1 %; MEAN CORPUSCULAR HEMOGLOBIN 28.6 pg (27.0-31.0); MEAN CORPUSCULAR HGB CONC 33.1 g/dL (32.0-36.0); MEAN CORPUSCULAR VOLUME 86.5 fL (81.0-99.0); MEAN PLATELET VOLUME 9.2 fL (7.9-10.8); MONOCYTES # (AUTO) 0.4 10^3/uL (0.0-1.0); MONOCYTES % (AUTO) 6.2 %; NEUTROPHILS # (AUTO) 4.3 10^3/uL (1.5-6.6); NEUTROPHILS % (AUTO) 59.7 %; RED BLOOD COUNT 3.57 10^6/uL (4.20-5.40); RED CELL DISTRIBUTION WIDTH 15.1 % (12.0-15.0); UNCORRECTED WHITE BLOOD COUNT 7.1 x10^3/uL; WHITE BLOOD COUNT 7.1 x10^3/uL (4.8-10.8)
[2016-12-24 06:21] LABS: INR 1.3 (0.8-1.2); PT - PROTHROMBIN TIME 14.6 secs (9.9-12.6)
[2016-12-24 06:27] LABS: ALBUMIN/GLOBULIN RATIO 0.6 (1.0-2.2); BILIRUBIN,TOTAL 0.9 mg/dL (0.2-1.0); CALCIUM 6.9 mg/dL (8.5-10.3); CREATININE 0.6 mg/dL (0.4-1.0); POTASSIUM 3.1 mmol/L (3.5-5.0); TOTAL PROTEIN 3.5 g/dL (6.7-8.2)
[2016-12-24] MEDS: FUROSEMIDE 40 MG/4 ML VIAL IVP SCH (06:57)
[2016-12-24] MEDS: PANTOPRAZOLE 40 MG TABLET PO SCH (06:57)
[2016-12-24] MEDS: MORPHINE IR 15 MG TABLET PO SCH (06:57)
[2016-12-24] MEDS: SODIUM CHLORIDE FLUSH 0.9% 10 ML SYRINGE IVP SCH ×2 (06:57→08:28)
[2016-12-24] MEDS: PREGABALIN 100 MG CAPSULE PO SCH (08:20)
[2016-12-24] MEDS: THIAMINE 100 MG TABLET PO SCH (08:21)
[2016-12-24] MEDS: CHOLECALCIFEROL 400 UNIT TABLET PO SCH (08:21)
[2016-12-24] MEDS: FOLIC ACID 1 MG TABLET PO SCH (08:22)
[2016-12-24] MEDS: DOCUSATE SODIUM 100 MG CAPSULE PO SCH (08:22)
[2016-12-24] MEDS: CALCIUM CARBONATE CHEW 500 MG TABLET PO SCH (08:22)
[2016-12-24] MEDS: POLYETHYLENE GLYCOL 3350 17 GM PACKET PO SCH (08:23)
[2016-12-24] MEDS: POTASSIUM CHLORIDE 20 MEQ TABLET PO SCH ×2 (08:24→11:57)
[2016-12-24] MEDS ORDERED: SODIUM CHLORIDE 0.9% 500 ML IV ONE (08:25)
[2016-12-24] MEDS: POTASSIUM CHLOR 10 MEQ/100 ML 100 ML IV SCH ×2 (08:33→10:40)
[2016-12-24 12:22] VITALS: BP 91/69
--- NOTE | 2016-12-24 13:06 | Discharge Plan ---
Discharge Plan Disposition: Home, Self Care Condition: Fair Prescriptions: Furosemide [Lasix] 40 mg PO DAILY #30 tablet Diet: Soft Shower Restrictions: No Driving Restrictions: Yes (no driving) Weight Bearing: Full Weight Additional Instructions or Follow Up instructions: Make an appt to see a provider at one of the community clinics. Slowly increase your activity. Restrict your fluid in take to 32 oz. total per 24 hours. until you get the new lasix 4o mg prescription filled take 2 of your 20 mg pills in the am. Thank you Dr. Pederson No Smoking: If you smoke, Please STOP! Call for help.
--- NOTE | 2016-12-27 18:48 | DISCHARGE SUMMARY ---
DATE OF ADMISSION: 12/21/2016 DATE OF DISCHARGE: 12/24/2016 ADMISSION DIAGNOSES: 1. Anasarca. 2. Hyponatremia. 3. Chronic pain. 4. Generalized weakness. 5. Morbid obesity. 6. Rare protein malnutrition. SPECIAL PROCEDURES: None. CONSULTATIONS: None. HOSPITAL COURSE: Initial presentation, hospital emergency evaluation, copy of the hospitalist plan is well described in the History and Physical, see copy of same. SUMMARY: This is a 46-year-old female who has a past medical history of morbid obesity, multiple surg eries including gastric surgery requiring corrections. The patient recently has also had increasing m edical problems. Recently the patient has a lot of swelling in her legs, lower abdomen, is unable to get up and walk by herself, and she can only manage a couple feet even with the assistance of 2 peopl e. The patient had a diuresis initiated, her sodium improved. She in the first day lost over 4 kg and th e second day another 2 kg and her weight which was inconsistently measured is not congruent with the amount of perceived weight loss in her legs which she had 3+ edema up to the upper thighs and her fee t and ankles were nearly indistinguishable, by the time of discharge could see clear ankle bones and she admitted that her swelling was much improved. The patient is examined on the day of discharge by inspection only as she refused any further interve ntion, was resistant to even further discussion of her condition and subsequent discharge plan. The patient, however, expressed very vehemently that she did not want to go to a [facility] for further care and she said she had to learn to walk all over again, though this was an exagge ration because even the day after her admission she was able to get out of bed by herself clearly wit h some effort, stand by herself, and take a couple of small steps to a standing scale, get off the sc homero and back on the scale and then back into bed. She refused any touching or help whatsoever. The day of discharge examination vital signs 36.7, 191/69, 18, 100% room air saturation. EYES: EOMs within normal limits. PERRLA. Nonicteric. MOUTH AND THROAT: Somewhat dry. NECK: No lymphadenopathy noted. No heart, lung, or abdomen exam except by inspection and same with her extremities. LABORATORY DATA: The patient had white count 7.1, 10 and 31 hemoglobin and hematocrit, 147 platelets, INR is 1.3. She is on Xarelto for previous PE and prevention. Sodium 137, potassium 3.1, chloride 10 0, CO2 is 31, BUN 12, creatinine 0.6, glucose is 88, calcium is 6.9. However, the albumin is 1.3 for a corrected albumin of 8.3. The patient's liver enzymes were normal. ALLERGIES: NO ALLERGIES. DISCHARGE MEDICATIONS: 1. Morphine 30 mg IR 4 times a day. 2. Potassium chloride 20 meq daily. 3. Iron 325 mg 3 times a day. 4. Thiamine 100 mg a day. 5. Folic acid 1 mg a day. 6. Nexium 40 mg a day. 7. Xarelto 20 mg a day. 8. Meclizine 25 mg 3 times a day as needed. 9. DSS 100 mg twice a day. 10. Calcium carbonate and vitamin D 1 b.i.d. 11. Lyrica 200 mg twice a day. 12. Amitriptyline 25 mg at bedtime. 13. Lasix 40 mg a day. The patient is to followup with a local clinic if she stays in the area. Plan of discharge activity was extensive, corroboration from case management, social work, 45 minutes . JOB #: [id number] EXT JOB #:[id number]
== END 2016-12-24 14:00 | disposition home or self-care (01) | DRG 641 ==
LOC: ED 13:10 → MS 15:12
PROVIDERS: ADMIT Internal Medicine; ATTEND Internal Medicine
DX: E43 Unspecified severe protein-calorie malnutrition (principal); E46 Unspecified protein-calorie malnutrition; E87.1 Hypo-osmolality and hyponatremia; Z68.26 Body mass index [BMI] 26.0-26.9, adult; G89.29 Other chronic pain; M54.9 Dorsalgia, unspecified; M79.7 Fibromyalgia; R53.1 Weakness; Z98.84 Bariatric surgery status
CPT/HCPCS: 36415; 51702; 71020; 80053; 81001; 81003; 81599; 83690; 83735; 85025; 85610; 87086; 87491; 87591; 96374; 96375; 99284; 99285

== ENCOUNTER 2016-12-26 16:17 | Outpatient (CLI) | payer MEDICARE | END 2016-12-26 16:18 | disposition critical access hospital (66) | LOC: EMS 16:17 | PROVIDERS: ATTEND Surgery | DX: R68.83 Chills (without fever) (principal); R11.2 Nausea with vomiting, unspecified; R19.7 Diarrhea, unspecified | CPT/HCPCS: A0425; A0427 ==

== ENCOUNTER 2016-12-26 16:37 | Inpatient (IN) | payer MEDICARE ==
--- NOTE | 2016-12-26 16:53 | ED Physician Documentation ---
PD HPI NVD - Stated complaint Stated Complaint: N/D - Chief complaint Chief Complaint: General - History obtained from History obtained from: Patient, EMS - History of Present Illness Timing - onset: How many days ago (has had nausea and unable to eat the past couple of days. She was here a week ago and admitted for 2 days due to weakness , leg edema, and low albumin/potassium due to malabsoprtion. She felt more like baseline at time of discharge but was weaker and with nausea/minimal intake the past couple days again. Feeling generally weak and fell to ground today at a restaurant and was unable to get back up. EMS brought her here.) Timing - duration: Days Timing - details: Gradual onset Associated symptoms: Loss of appetite, Other (nausea and did have vomiting twice today. Soft stool but has had that since small bowel partial resection about 6 weeks ago.). No: Fever, Abdominal pain, Chest pain, Hematemesis, Hematochezia, Dysuria, Hematuria Contributing factors: Other (prior gastric bypass in the past, and also with small bowel surgery partial resection recent). No: Sick contact, Bad food Improved by: No: Vomiting, BM, Position Worsened by: Eating. No: Position Similar symptoms before: Treatment (IV fluids and medications.) Recently seen: Admitted (since prior discharge, has had nausea, poor intake, general weakness. Today collapsed/legs gave out and unable to walk/stand.) Review of Systems Constitutional: denies: Fever, Chills, Myalgias Nose: denies: Rhinorrhea / runny nose, Congestion Throat: denies: Sore throat Cardiac: denies: Chest pain / pressure Respiratory: denies: Dyspnea, Cough GI: reports: Nausea, Vomiting. denies: Abdominal Pain, Diarrhea, Bloody / black stool : denies: Dysuria, Frequency Skin: denies: Rash, Lesions Neurologic: reports: Generalized weakness. denies: Focal weakness, Numbness, Near syncope, Altered mental status, Headache, Head injury Endocrine: reports: Weight loss Immunocompromised: denies: Immunocompromised PD PAST MEDICAL HISTORY - Past Medical History Cardiovascular: Deep vein thrombosis, Atrial flutter, Murmur Respiratory: Pneumonia, Shortness of breath Neuro: TIA, Headache/migraine, Head injury, Other Endocrine/Autoimmune: None GI: None : Retention HEENT: Chronic vision loss Psych: Post traumatic stress disorder, Claustrophobia Musculoskeletal: Osteoarthritis, Fibromyalgia, Fatigue Derm: None - Past Surgical History Past Surgical History: Yes General: Cholecystectomy, Appendectomy, Bowel surgery, Gastric surgery /PILOT STEAM YACHT: section - Present Medications Home Medications: Ambulatory Orders Medication Instructions Recorded Confirmed Amitriptyline HCl 25 mg PO QPM 12/21/16 12/21/16 Calcium Carbonate/Vitamin D3 1 each PO BID 12/21/16 12/21/16 [Calcium 500-Vit D3 200 Tablet] Docusate Sodium [Stool Softener] 100 mg PO BID 12/21/16 12/21/16 Esomeprazole Magnesium 40 mg PO DAILY 12/21/16 12/21/16 Ferrous Sulfate 325 mg PO TID 12/21/16 12/21/16 Folic Acid 1 mg PO DAILY 12/21/16 12/21/16 Meclizine HCl 25 mg PO TID PRN 12/21/16 12/21/16 Morphine Sulfate 60 mg PO BID 12/21/16 12/21/16 Potassium Chloride Oral Soln 20 meq PO DAILY 12/21/16 12/21/16 Pregabalin [Lyrica] 200 mg PO BID 12/21/16 12/21/16 Rivaroxaban [Xarelto] 20 mg PO QPM 12/21/16 12/21/16 Thiamine HCl [Vitamin B-1] 100 mg PO DAILY 12/21/16 12/21/16 Furosemide [Lasix] 40 mg PO DAILY #30 tablet 12/24/16 - Allergies Allergies/Adverse Reactions: Allergies Allergy/AdvReac Type Severity Reaction Status Date / Time No Known Drug Allergies Allergy Verified 12/26/16 16:52 - Social History Smoking Status: Former smoker Does the pt drink ETOH?: No Does the pt have substance abuse?: No PD ED PE NORMAL - Vitals Vital signs reviewed: Yes - General General: Alert and oriented X 3, Well developed/nourished, Other (pale and thin) - HEENT HEENT: Atraumatic, Pharynx benign - Neck Neck: Supple, no meningeal sign, No adenopathy - Cardiac Cardiac: RRR (mild tachycardia), No murmur - Respiratory Respiratory: Clear bilaterally - Abdomen Abdomen: Soft, No organomegaly, Other (tenderness mid abdomen without guarding, no percussion tenderness. Bowel sounds some increased. ) - Female Female : Deferred - Rectal Rectal: Deferred - Back Back: No CVA TTP - Derm Derm: No: Normal color (pale color) - Extremities Extremities: No calf tenderness / cord, Other (3+ edema in both legs up to knees , pitting, with tenderness) - Neuro Neuro: Alert and oriented X 3, No motor deficit, Normal speech - Psych Psych: Normal mood Results - Vitals Vitals: Vital Signs - 24 hr 12/26/16 12/26/16 12/26/16 16:47 18:46 20:22 Temperature 36.3 C L 36.6 C Heart Rate 102 H 96 100 Respiratory 18 16 22 Rate Blood Pressure 113/72 115/75 95/62 O2 Saturation 100 99 101 H Oxygen O2 Source [Without Activity] Room air O2 Source Room air - Labs Labs: Laboratory Tests 12/26/16 12/26/16 18:05 18:05 WBC 5.0 RBC 3.04 L Hgb 8.7 L Hct 26.5 L MCV 87.0 MCH 28.5 MCHC 32.8 RDW 15.3 H Plt Count 143 MPV 9.8 Neut # 2.7 Lymph # 1.9 [place] # 0.4 Eos # 0.0 Baso # 0.0 Absolute Nucleated RBC 0.00 Nucleated RBCs 0.1 Sodium 135 Potassium 2.8 L Chloride 99 L Carbon Dioxide 29 Anion Gap 7.0 BUN 11 Creatinine 0.8 Estimated GFR (MDRD) 77 L Glucose 79 Calcium 6.7 L Magnesium 1.5 L Total Bilirubin 0.8 AST 32 ALT 47 Alkaline Phosphatase 74 Total Protein 3.4 L Albumin 1.2 L Globulin 2.2 Albumin/Globulin Ratio 0.5 L Lipase 13 L PD MEDICAL DECISION MAKING - ED course Complexity details: reviewed results (Low Potassium and is anemic, lower than recent. ), considered differential (given IV fluids for hydration. Albumin IV to help with edema. Her potassium is low, so given IV dose. Can try PO dose as well. She is able to take some PO here small amounts after antiemetic. She was unable to stand/walk unassisted at this time. ), d/w patient, d/w automobile sales consultant ( Dr. Paniagua, Hospitalist) Departure - Departure Disposition: ED Place in Observation Clinical Impression: Hypoalbuminemia due to protein-calorie malnutrition, Hypokalemia, Generalized muscle ache, Unable to walk Condition: Stable Record reviewed to determine appropriate education?: Yes Discharge Date/Time: 12/26/16 22:00
[2016-12-26] MEDS ORDERED: HYDROmorphone 1 MG/ML SYRINGE IVP STA (17:17)
[2016-12-26] MEDS ORDERED: SODIUM CHLORIDE 0.9% 1,000 ML IV ONE (17:17)
[2016-12-26] MEDS ORDERED: ONDANSETRON 4 MG/2 ML VIAL IVP STA (17:17)
[2016-12-26] MEDS ORDERED: HYDROmorphone 1 MG/ML SYRINGE ONE (17:38)
[2016-12-26] MEDS ORDERED: ONDANSETRON 4 MG/2 ML VIAL ONE (17:38)
[2016-12-26] MEDS ORDERED: ALBUMIN 25% 50 ML IV STA (18:17)
[2016-12-26 18:18] LABS: BASOPHILS % (AUTO) 0.5 %; EOSINOPHILS % (AUTO) 0.2 %; HCT - HEMATOCRIT 26.5 % (37.0-47.0); HGB - HEMOGLOBIN 8.7 g/dL (12.0-16.0); LYMPHOCYTES # (AUTO) 1.9 10^3/uL (1.5-3.5); LYMPHOCYTES % (AUTO) 37.9 %; MEAN CORPUSCULAR HEMOGLOBIN 28.5 pg (27.0-31.0); MEAN CORPUSCULAR HGB CONC 32.8 g/dL (32.0-36.0); MEAN PLATELET VOLUME 9.8 fL (7.9-10.8); MONOCYTES # (AUTO) 0.4 10^3/uL (0.0-1.0); MONOCYTES % (AUTO) 7.3 %; NEUTROPHILS # (AUTO) 2.7 10^3/uL (1.5-6.6); NEUTROPHILS % (AUTO) 54.1 %; NUCLEATED RED BLOOD CELLS AUTO 0.1 /100WBC; RED BLOOD COUNT 3.04 10^6/uL (4.20-5.40); RED CELL DISTRIBUTION WIDTH 15.3 % (12.0-15.0)
[2016-12-26 18:31] LABS: ALBUMIN/GLOBULIN RATIO 0.5 (1.0-2.2); BILIRUBIN,TOTAL 0.8 mg/dL (0.2-1.0); CALCIUM 6.7 mg/dL (8.5-10.3); CREATININE 0.8 mg/dL (0.4-1.0); MAGNESIUM 1.5 mg/dL (1.7-2.8); POTASSIUM 2.8 mmol/L (3.5-5.0); TOTAL PROTEIN 3.4 g/dL (6.7-8.2)
[2016-12-26] MEDS ORDERED: POTASSIUM CHLOR 10 MEQ/100 ML 100 ML IV ONE ×2 (18:43→18:59)
--- NOTE | 2016-12-26 20:42 | HISTORY & PHYSICAL EXAMINATION ---
Chief Complaint - Chief Complaint Chief Complaint: Nausea and weakness History of Present Illness - Admitted From Admitted From:: emergency Department - History Obtained From Records Reviewed: EMR History obtained from: patient and records - History of Present Illness HPI Comment/Other: this patient presents to the emergency department after being discharged a few days ago. She complains of continued nausea, generalized weakness. she reports that when she left here a few days ago, that all of her medications were locked in her niece's trunk, and that she has not been able to take any of her medi medications since then.there apparently is a lot of familytrauma going on, and no one wanted to break open the trunk. The patient reports she has been eating well, but today, while walking across a street,fainted, and was brought to the ER. She says she has been feeling weak, and she'll, and dizzy. Her throat has been a little sore. She sometimes feels mildly short of breath. She only vomits if she takes narcotics without Zofran. Otherwise,she has not had documented fever, headache, cough, chest pain, nausea or vomiting, diarrhea or constipation, dysuria. she reports that in [place], they have been telling her she needs to live in assisted living, but she has been resisting. She now says, perhaps she cannot take care of herself. past medical history: DVT Atrial flutter Heart murmur Pneumonia TIA Migraines Head injury, and TBI Urinary retention Chronic vision loss PTSD, claustrophobi Fibromyalgia, osteoarthritis, fatigue Chronic dyspnea with e Exertion Morbid obesity Past surgical history: Cholecystectomy, appen, bowel surgery, gastric bypass, C- sectionnext Allergies: No known drug allergies Medications: she reports she has missed all dose for 2 days XARELTO 20 mg every afternoon Lyrica 200 mg twice a Potassium chloride 20 m MS Contin 60 mg by mouth twice a Meclizine 25 mg 3 time Lasix 40 mg daily Folate 1 mg daily EsMeprazole 40 mg daily Amitriptyline 25 mg [place] Thiamine 100 mg daily Folic acid 1 mg daily Colace 100 mg twice a Calcium plus D5 100-200 one by mouth twice social history: The patient recently came here from [place], to reconnect with family. She previously smoked about one pack per day, but quit 9 years ago. She previously drank regularly, but quit 13 years ago. She does not use drug. She lives alone in [place]. Family history Unclear, possible family history of stroke and diabetes.mom had a bad heart. Her brother is currently suffering with heart failure. Her father had dementia. History - Past Medical History Cardiovascular: reports: Deep vein thrombosis, Atrial flutter, Murmur Respiratory: reports: Pneumonia, Shortness of breath Neuro: reports: TIA, Headache/migraine, Head injury, Other Endocrine/Autoimmune: reports: None GI: reports: None METAL ROOM DENTAL TECHNICIAN: reports: None : reports: Retention HEENT: reports: Chronic vision loss Psych: reports: Post traumatic stress disorder, Claustrophobia Musculoskeletal: reports: Osteoarthritis, Fibromyalgia, Fatigue Derm: reports: None Other Past Medical History: has history of DVT and pulmonary embolism - Past Surgical History General: reports: Cholecystectomy, Appendectomy, Bowel surgery, Gastric surgery /METAL ROOM DENTAL TECHNICIAN: reports: section - POLST Patient has POLST: No Meds/Allgy - Home Medications Home Medications: Ambulatory Orders Medication Instructions Recorded Confirmed Amitriptyline HCl 25 mg PO QPM 12/21/16 12/21/16 Calcium Carbonate/Vitamin D3 1 each PO BID 12/21/16 12/21/16 [Calcium 500-Vit D3 200 Tablet] Docusate Sodium [Stool Softener] 100 mg PO BID 12/21/16 12/21/16 Esomeprazole Magnesium 40 mg PO DAILY 12/21/16 12/21/16 Ferrous Sulfate 325 mg PO TID 12/21/16 12/21/16 Folic Acid 1 mg PO DAILY 12/21/16 12/21/16 Meclizine HCl 25 mg PO TID PRN 12/21/16 12/21/16 Morphine Sulfate 60 mg PO BID 12/21/16 12/21/16 Potassium Chloride Oral Soln 20 meq PO DAILY 12/21/16 12/21/16 Pregabalin [Lyrica] 200 mg PO BID 12/21/16 12/21/16 Rivaroxaban [Xarelto] 20 mg PO QPM 12/21/16 12/21/16 Thiamine HCl [Vitamin B-1] 100 mg PO DAILY 12/21/16 12/21/16 Furosemide [Lasix] 40 mg PO DAILY #30 tablet 12/24/16 - Allergies Allergies/Adverse Reactions: Allergies Allergy/AdvReac Type Severity Reaction Status Date / Time No Known Drug Allergies Allergy Verified 12/26/16 16:52 Exam - Vital Signs Reviewed Vital Signs: Yes Vital Signs: Vital Signs x48h Temp Pulse Resp BP Pulse Ox 12/26/16 20:31 97/66 12/26/16 20:22 36.6 C 100 22 95/62 101 H 12/26/16 18:46 96 16 115/75 99 12/26/16 16:47 36.3 C L 102 H 18 113/72 100 On exam, she is a frail appearing white female, in no acute distress. Head: Normocephalic, but with temporal wasting. Atraumatic. Eyes: PERRLA, EOMI, anicteric. Ears: TMs and canals are clear. Pharynx: Clear. Mucosa is very dry. Lower jaw has terrible dentition. Neck: Appears supple, without lymphadenopathy, JVD, thyromegaly, bruits. Cardiac exam: Shows regular rate and with normal S1 and S2. No murmurs, rubs, gallops are noted. Lungs: Are clear to auscultati, without rales, rhonchi, wheezes, Abdomen: Is soft and nontender. There is a large midline scar. There is no guarding or rebound. Bowel sounds are active Extremities: Show at least 2+ edema to above the knees. Legs are markedly tender. No cyanosis or clubbing is noted. Skin exam: Shows a large bruise at the left antecubital fossa area. No other lesions are noted. Neurologic exam: Is grossly nonfocal. Conclusion/Plan - Lab Results Fish Bones: 12/26/16 18:05 12/26/16 18:05 Other Lab Results: magnesium as long at 1.5 Total protein low at 3.4, albumin low at 1.2 Issues/Core Measures - Anticipated LOS Anticipated Stay Length: Less than 2 midnights - Issues Hospital Issues and Management Plan: #1. Weakness. This patient has ongoing poor nutrition, and likely poor Hydration. This is associated with hypokalemia. she reportedly has not had any of her medications lately. -Admit for IV fluids, IV and oral potassium, Physical and occupational therapy Evaluation. -Resume multivitamin, thiamine,, folate, calcium plus D.iron sulfate. #2.nutrition -nutrition consult. -replace magnesium, potassium, calcium. Chronic malnutrition.likely causing anasarca. Continue to monitor Sodium and potassium. Diurese as able. raising her protein levels would help. #3. Chronic pain. Continu MS Contin, but change to 30 mg 4 times a day, so can be held for oversedation. #4. CODE STATUS:full. #5. DVT prophylaxis, history of DVT.: Continue XARELTO. #6. Insomnia. Continue Elavil. #7. Neurologic. Continue Lyrica for her neuropathy. Continue meclizine when necessary vertigo. #8. GI. Continue PPI for reported GERD. this visit took approximately 55 minutes an to review her case with the ER Joseph, review her records and test results, interview and examine h, and write orders.
[2016-12-26] MEDS: MORPHINE ER 60 MG TABLET PO SCH (22:49)
[2016-12-26] MEDS: ONDANSETRON 4 MG/2 ML VIAL IVP PRN (22:50)
[2016-12-26] MEDS: SODIUM CHLORIDE FLUSH 0.9% 10 ML SYRINGE IVP SCH (22:50)
[2016-12-26] MEDS: D5.45NS W/20 MEQ KCL 1,000 ML IV SCH (23:00)
[2016-12-26] MEDS ORDERED: MECLIZINE HCL 25 MG PO PRN (23:28)
[2016-12-26] MEDS ORDERED: MORPHINE SULFATE 30 MG PO SCH (23:30)
[2016-12-26] MEDS ORDERED: MAGNESIUM SULFATE 2 GRAM 50 ML IV ONE (23:52)
[2016-12-27] MEDS: SODIUM CHLORIDE FLUSH 0.9% 10 ML SYRINGE IVP PRN ×3 (00:31→21:23)
[2016-12-27] MEDS: MORPHINE ER 15 MG TABLET PO SCH ×4 (00:46→18:10)
[2016-12-27] MEDS ORDERED: POTASSIUM CHLORIDE 10 MEQ CAPSULE PO ONE (00:54)
[2016-12-27] MEDS ORDERED: POTASSIUM CHLORIDE 10 MEQ CAPSULE PO SCH ×3 (00:54→23:26)
[2016-12-27] MEDS: MECLIZINE 12.5 MG TABLET PO SCH ×3 (05:41→21:12)
[2016-12-27 06:05] LABS: BASOPHILS % (AUTO) 0.8 %; EOSINOPHILS # (AUTO) 0.1 10^3/uL (0.0-0.7); EOSINOPHILS % (AUTO) 1.8 %; HCT - HEMATOCRIT 24.7 % (37.0-47.0); HGB - HEMOGLOBIN 8.2 g/dL (12.0-16.0); LYMPHOCYTES # (AUTO) 2.8 10^3/uL (1.5-3.5); LYMPHOCYTES % (AUTO) 58.2 %; MEAN CORPUSCULAR HEMOGLOBIN 28.7 pg (27.0-31.0); MEAN CORPUSCULAR HGB CONC 33.3 g/dL (32.0-36.0); MEAN CORPUSCULAR VOLUME 86.2 fL (81.0-99.0); MEAN PLATELET VOLUME 9.2 fL (7.9-10.8); MONOCYTES # (AUTO) 0.3 10^3/uL (0.0-1.0); MONOCYTES % (AUTO) 5.6 %; NEUTROPHILS # (AUTO) 1.6 10^3/uL (1.5-6.6); NEUTROPHILS % (AUTO) 33.6 %; NUCLEATED RED BLOOD CELLS AUTO 0.1 /100WBC; RED BLOOD COUNT 2.87 10^6/uL (4.20-5.40); RED CELL DISTRIBUTION WIDTH 15.5 % (12.0-15.0); UNCORRECTED WHITE BLOOD COUNT 4.8 x10^3/uL; WHITE BLOOD COUNT 4.8 x10^3/uL (4.8-10.8)
[2016-12-27] MEDS: POTASSIUM CHLORIDE 10 MEQ CAPSULE PO SCH ×3 (06:13→21:12)
[2016-12-27] MEDS: PANTOPRAZOLE 40 MG VIAL IVP SCH (06:14)
[2016-12-27] MEDS: SODIUM CHLORIDE FLUSH 0.9% 10 ML SYRINGE IVP SCH ×3 (06:14→18:10)
[2016-12-27] MEDS: ONDANSETRON 4 MG/2 ML VIAL IVP PRN ×3 (06:18→21:23)
[2016-12-27 06:22] LABS: ALBUMIN/GLOBULIN RATIO 0.7 (1.0-2.2); BILIRUBIN,TOTAL 0.8 mg/dL (0.2-1.0); CALCIUM 6.9 mg/dL (8.5-10.3); CREATININE 0.8 mg/dL (0.4-1.0); POTASSIUM 2.9 mmol/L (3.5-5.0); TOTAL PROTEIN 3.4 g/dL (6.7-8.2)
[2016-12-27 08:30] LABS: BILIRUBIN,URINE SMALL (NEGATIVE)
[2016-12-27 08:35] LABS: UR CULTURE IF IND INDICATED
[2016-12-27] MEDS ORDERED: THIAMINE HCL 100 MG PO SCH (09:00)
[2016-12-27] MEDS ORDERED: THIAMINE 100 MG TABLET PO SCH (09:00)
[2016-12-27] MEDS ORDERED: ESOMEPRAZOLE MAGNESIUM 40 MG PO SCH (09:00)
[2016-12-27] MEDS ORDERED: CHOLECALCIFEROL 400 UNIT TABLET PO SCH (09:00)
[2016-12-27] MEDS ORDERED: MAGNESIUM SULFATE 2 GRAM 50 ML IV ONE (09:07)
--- NOTE | 2016-12-27 09:10 | PROVIDER PROGRESS NOTE ---
Assessment/Plan - Problem List (1) Hypoalbuminemia due to protein-calorie malnutrition Assessment/Plan: acute on chronic. patient is receiving additional nutritioanl support. nutrition consult ordered. continue to monitor album level. now at <2. (2) Anasarca Assessment/Plan: chronic. continue to monitor with nutrition support and monitoring or electrolyte imbalances (3) Low blood magnesium level Assessment/Plan: acute. replace magnesium wtih magnesium sulfate IV and monitor in daily lab draws. (4) Hypokalemia Assessment/Plan: acute. replace with oral potassium 40meq and monitor with daily lab draws. (5) Generalized muscle ache Assessment/Plan: acute on chronic. likely due to low magnesium levels. will replace and encourage ambulation - Current Meds Current Meds: Current Medications Generic Name Dose Route Start Last Admin Trade Name Freq PRN Reason Stop Dose Admin Potassium Chloride/Dextrose/Sod Cl 1,000 mls @ 100 mls/hr 12/26/16 21:00 23:00 D5.45ns W/20 Meq Kcl IV 100 mls/hr .Q10H ARELY Administration Meclizine HCl 25 mg 12/27/16 06:00 12/27/16 05:41 Antivert PO Not Given TID ARELY Morphine Sulfate 60 mg 12/26/16 21:00 12/26/16 22:49 Morphine Er PO 60 mg Q12H ARELY Administration Morphine Sulfate 30 mg 12/27/16 00:00 12/27/16 06:13 PO 30 mg Q6HR ARELY Administration Ondansetron HCl 4 mg 12/26/16 22:30 12/27/16 06:18 Zofran Inj IVP 4 mg Q4HR PRN Administration Nausea / Vomiting Pantoprazole Sodium 40 mg 12/27/16 07:00 12/27/16 06:14 Protonix IVP 40 mg QDAC ARELY Administration Potassium Chloride 20 meq 12/27/16 06:00 12/27/16 06:13 Micro-K PO 20 meq TID ARELY Administration Sodium Chloride 10 ml 12/26/16 20:26 12/27/16 06:14 Normal Saline Flush 0.9% IVP 10 ml PRN PRN Administration NEEDED PER PROVIDER ORDERS Sodium Chloride 10 ml 12/26/16 22:00 12/27/16 06:14 Normal Saline Flush 0.9% IVP 10 ml Q8HR ARELY Administration - Lab Result Lab results reviewed: Yes Fish Bone Diagrams: 12/28/16 05:39 12/28/16 05:39 Other Lab Results: Abnormal Lab Results 12/26/16 12/26/16 12/27/16 18:05 18:05 05:55 RBC 3.04 10^6/uL L 10^6/uL 2.87 10^6/uL L 10^6/uL (4.20-5.40) (4.20-5.40) Hgb 8.7 g/dL L g/dL 8.2 g/dL L g/dL (12.0-16.0) (12.0-16.0) Hct 26.5 % L % 24.7 % L % (37.0-47.0) (37.0-47.0) RDW 15.3 % H % 15.5 % H % (12.0-15.0) (12.0-15.0) Potassium 2.8 mmol/L L mmol/L (3.5-5.0) Chloride 99 mmol/L L mmol/L (101-111) Estimated GFR (MDRD) 77 L (>89) Glucose Calcium 6.7 mg/dL L mg/dL (8.5-10.3) Magnesium 1.5 mg/dL L mg/dL (1.7-2.8) Total Protein 3.4 g/dL L g/dL (6.7-8.2) Albumin 1.2 g/dL L g/dL (3.2-5.5) Globulin Albumin/Globulin Ratio 0.5 L (1.0-2.2) Lipase 13 U/L L U/L (22-51) Urine Occult Blood Urine Bilirubin Ur Leukocyte Esterase Urine WBC Urine Bacteria 12/27/16 12/27/16 05:55 07:05 RBC Hgb Hct RDW Potassium 2.9 mmol/L L mmol/L (3.5-5.0) Chloride 100 mmol/L L mmol/L (101-111) Estimated GFR (MDRD) 77 L (>89) Glucose 112 mg/dL H mg/dL (70-100) Calcium 6.9 mg/dL L mg/dL (8.5-10.3) Magnesium Total Protein 3.4 g/dL L g/dL (6.7-8.2) Albumin 1.4 g/dL L g/dL (3.2-5.5) Globulin 2.0 g/dL L g/dL (2.1-4.2) Albumin/Globulin Ratio 0.7 L (1.0-2.2) Lipase Urine Occult Blood MODERATE H (NEGATIVE) Urine Bilirubin SMALL H (NEGATIVE) Ur Leukocyte Esterase MODERATE H (NEGATIVE) Urine WBC 6-10 /HPF H /HPF (0-5) Urine Bacteria Many /HPF H /HPF (None Seen) - EKG Results EKG Interpreted Independently: No - Additional Planning Condition/Complexity: Stable My Orders: My Active Orders 12/27/16 PHOSPHORUS [CHEM] Routine 12/27/16 07:05 CUL, URINE [RM] Stat 12/27/16 09:03 Admit \ Transfer \ Status [RC] ONCE 12/27/16 09:07 Magnesium Sulfate 2 Gram [Magnesium Sulfate] 50 ml IV ONCE 12/28/16 05:00 MAGNESIUM [CHEM] DAILYLAB Consult/Specialty: OT, PT Plan Discussed with:: Patient, Case Management Time Spent: 31-60 minutes Additional Planning Notes: patient plan to discharge tomorrow when family can come to take her home. she will need another 24 hours stay Subjective - Subjective Patient Reports: Abdominal Pain, Fatigue (she is tired and not feeling like getting out of bed today), Pain Nursing Reports: Nausea (patient continues to have nausea and mild abdominal pain with nursing.), Pain Objective Vital Signs: Vital Signs - 24 hr 12/26/16 12/26/16 12/27/16 20:31 22:00 00:49 Temperature 36.8 C 36.6 C Heart Rate [ 103 H 91 Brachial] Respiratory 18 18 Rate Blood Pressure 97/66 Blood Pressure 93/60 103/61 [Left Brachial artery] O2 Saturation 100 96 12/27/16 12/27/16 05:48 08:17 Temperature 36.5 C 36.7 C Heart Rate [ 90 88 Brachial] Respiratory 16 18 Rate Blood Pressure Blood Pressure 95/54 L 101/69 [Left Brachial artery] O2 Saturation 100 100 Oxygen O2 Source Room air I&O (Last 24 Hrs): Intake and Output Totals x24h 12/25/16 12/26/16 12/27/16 23:59 23:59 23:59 Intake Total 100 506 Output Total 700 Balance 100 -194 General: Alert, Oriented x3 HEENT: PERRLA Neck: Supple, No thyromegaly Lymphatic: no adenopathy Neuro: Alert, Oriented Times 3 Cardiovascular: Normal S1, Normal S2, No murmurs Respiratory: Chest non-tender, Breath sounds nml Abdomen: Soft, Other (generalized tenderness) Extremities: No clubbing, No cyanosis, No edema, Normal pulses Skin: No rashes, No breakdown, No significant lesion - Results Results: Laboratory Results WBC 4.8 x10^3/uL (4.8-10.8) 12/27/16 05:55 RBC 2.87 10^6/uL (4.20-5.40) L 12/27/16 05:55 Hgb 8.2 g/dL (12.0-16.0) L 12/27/16 05:55 Hct 24.7 % (37.0-47.0) L 12/27/16 05:55 MCV 86.2 fL (81.0-99.0) 12/27/16 05:55 MCH 28.7 pg (27.0-31.0) 12/27/16 05:55 MCHC 33.3 g/dL (32.0-36.0) 12/27/16 05:55 RDW 15.5 % (12.0-15.0) H 12/27/16 05:55 Plt Count 130 10^3/uL (130-450) 12/27/16 05:55 MPV 9.2 fL (7.9-10.8) 12/27/16 05:55 Neut # 1.6 10^3/uL (1.5-6.6) 12/27/16 05:55 Lymph # 2.8 10^3/uL (1.5-3.5) 12/27/16 05:55 [place] # 0.3 10^3/uL (0.0-1.0) 12/27/16 05:55 Eos # 0.1 10^3/uL (0.0-0.7) 12/27/16 05:55 Baso # 0.0 10^3/uL (0.0-0.1) 12/27/16 05:55 Absolute Nucleated RBC 0.00 x10^3/uL 12/27/16 05:55 Nucleated RBCs 0.1 /100WBC 12/27/16 05:55 Sodium 135 mmol/L (135-145) 12/27/16 05:55 Potassium 2.9 mmol/L (3.5-5.0) L 12/27/16 05:55 Chloride 100 mmol/L (101-111) L 12/27/16 05:55 Carbon Dioxide 29 mmol/L (21-32) 12/27/16 05:55 Anion Gap 6.0 (6-13) 12/27/16 05:55 BUN 10 mg/dL (6-20) 12/27/16 05:55 Creatinine 0.8 mg/dL (0.4-1.0) 12/27/16 05:55 Estimated GFR (MDRD) 77 (>89) L 12/27/16 05:55 Glucose 112 mg/dL (70-100) H 12/27/16 05:55 Calcium 6.9 mg/dL (8.5-10.3) L 12/27/16 05:55 Magnesium 1.8 mg/dL (1.7-2.8) 12/27/16 05:55 Total Bilirubin 0.8 mg/dL (0.2-1.0) 12/27/16 05:55 AST 27 IU/L (10-42) 12/27/16 05:55 ALT 41 IU/L (10-60) 12/27/16 05:55 Alkaline Phosphatase 73 IU/L (42-121) 12/27/16 05:55 Total Protein 3.4 g/dL (6.7-8.2) L 12/27/16 05:55 Albumin 1.4 g/dL (3.2-5.5) L 12/27/16 05:55 Globulin 2.0 g/dL (2.1-4.2) L 12/27/16 05:55 Albumin/Globulin Ratio 0.7 (1.0-2.2) L 12/27/16 05:55 Lipase 13 U/L (22-51) L 12/26/16 18:05 Urine Color DARK YELLOW 12/27/16 07:05 Urine Clarity CLOUDY (CLEAR) 12/27/16 07:05 Urine pH 6.0 PH (5.0-7.5) 12/27/16 07:05 Ur Specific [place] 1.020 (1.002-1.030) 12/27/16 07:05 Urine Protein NEGATIVE mg/dL (NEGATIVE) 12/27/16 07:05 Urine Glucose (UA) NEGATIVE mg/dL (NEGATIVE) 12/27/16 07:05 Urine Ketones NEGATIVE mg/dL (NEGATIVE) 12/27/16 07:05 Urine Occult Blood MODERATE (NEGATIVE) H 12/27/16 07:05 Urine Nitrite NEGATIVE (NEGATIVE) 12/27/16 07:05 Urine Bilirubin SMALL (NEGATIVE) H 12/27/16 07:05 Urine Urobilinogen 0.2 (NORMAL) E.U./dL (NORMAL) 12/27/16 07:05 Ur Leukocyte Esterase MODERATE (NEGATIVE) H 12/27/16 07:05 Urine RBC 0-5 /HPF (0-5) 12/27/16 07:05 Urine WBC 6-10 /HPF (0-5) H 12/27/16 07:05 Ur Squamous Epith Cells RARE Squamous (<= Few) 12/27/16 07:05 Urine Bacteria Many /HPF (None Seen) H 12/27/16 07:05 Urine Culture Comments INDICATED 12/27/16 07:05
[2016-12-27] MEDS: FERROUS SULFATE 325 MG TABLET PO SCH ×2 (09:35→18:10)
[2016-12-27] MEDS: FUROSEMIDE 20 MG TABLET PO SCH (09:35)
[2016-12-27] MEDS: DOCUSATE SODIUM 100 MG CAPSULE PO SCH ×2 (09:35→21:11)
[2016-12-27] MEDS: FOLIC ACID 1 MG TABLET PO SCH (09:35)
[2016-12-27] MEDS: CALCIUM CARBONATE CHEW 500 MG TABLET PO SCH ×2 (09:35→21:11)
[2016-12-27] MEDS: MORPHINE ER 60 MG TABLET PO SCH ×2 (09:35→21:39)
[2016-12-27] MEDS: PREGABALIN 100 MG CAPSULE PO SCH ×2 (09:35→21:11)
[2016-12-27] MEDS: D5.45NS W/20 MEQ KCL 1,000 ML IV SCH (10:57)
[2016-12-27] MEDS ORDERED: POTASSIUM CHLORIDE INJ 40 MEQ in SODIUM CHLORIDE 0.9% 480 ML IV ONE (12:24)
[2016-12-27] MEDS: MULTIVITAMIN 10 ML, FOLIC ACID INJ 1 MG, THIAMINE INJ 100 MG, MAGNESIUM SULFATE 2 GM in... IV SCH ×5 (13:46)
[2016-12-27] MEDS ORDERED: ALBUMIN 25% 50 ML IV STA (15:36)
[2016-12-27 16:19] LABS: IMMATURE RETIC FRACTION 0.47; RED BLOOD COUNT 2.92 10^6/uL (4.20-5.40)
[2016-12-27 16:54] LABS: FERRITIN 112.1 ng/mL (11.0-306.8)
[2016-12-27] MEDS ORDERED: RIVAROXABAN 10 MG TABLET PO SCH (17:00)
[2016-12-27 17:03] LABS: IRON 45 ug/dL (28-170); TOTAL IRON BINDING CAPACITY 113 ug/dL (250-450); TRANSFERRIN < 81 mg/dL (192-382)
[2016-12-27] MEDS ORDERED: NON FORMULARY MED (Rivaroxaban [Xarelto] 20 MG) PO SCH (21:00)
[2016-12-27] MEDS ORDERED: AMITRIPTYLINE 25 MG TABLET PO SCH (21:00)
[2016-12-28] MEDS: MORPHINE ER 15 MG TABLET PO SCH ×3 (00:19→11:50)
[2016-12-28 00:50] VITALS: BP 102/78
[2016-12-28 06:14] LABS: BASOPHILS # (AUTO) 0.1 10^3/uL (0.0-0.1); BASOPHILS % (AUTO) 0.7 %; EOSINOPHILS # (AUTO) 0.1 10^3/uL (0.0-0.7); EOSINOPHILS % (AUTO) 0.8 %; HCT - HEMATOCRIT 33.4 % (37.0-47.0); HGB - HEMOGLOBIN 10.7 g/dL (12.0-16.0); LYMPHOCYTES # (AUTO) 2.8 10^3/uL (1.5-3.5); LYMPHOCYTES % (AUTO) 22.6 %; MEAN CORPUSCULAR HEMOGLOBIN 28.2 pg (27.0-31.0); MEAN CORPUSCULAR HGB CONC 32.2 g/dL (32.0-36.0); MEAN CORPUSCULAR VOLUME 87.4 fL (81.0-99.0); MEAN PLATELET VOLUME 9.8 fL (7.9-10.8); MONOCYTES # (AUTO) 0.8 10^3/uL (0.0-1.0); MONOCYTES % (AUTO) 6.3 %; NEUTROPHILS # (AUTO) 8.7 10^3/uL (1.5-6.6); NEUTROPHILS % (AUTO) 69.6 %; RED BLOOD COUNT 3.82 10^6/uL (4.20-5.40); RED CELL DISTRIBUTION WIDTH 15.4 % (12.0-15.0); UNCORRECTED WHITE BLOOD COUNT 12.5 x10^3/uL; WHITE BLOOD COUNT 12.5 x10^3/uL (4.8-10.8)
[2016-12-28 06:26] LABS: ALBUMIN/GLOBULIN RATIO 0.9 (1.0-2.2); BILIRUBIN,TOTAL 1.2 mg/dL (0.2-1.0); CALCIUM 7.7 mg/dL (8.5-10.3); CREATININE 0.6 mg/dL (0.4-1.0); MAGNESIUM 2.6 mg/dL (1.7-2.8); POTASSIUM 3.7 mmol/L (3.5-5.0); TOTAL PROTEIN 4.5 g/dL (6.7-8.2)
[2016-12-28] MEDS: MECLIZINE 12.5 MG TABLET PO SCH (07:04)
[2016-12-28] MEDS: POTASSIUM CHLORIDE 10 MEQ CAPSULE PO SCH (07:04)
[2016-12-28] MEDS: PANTOPRAZOLE 40 MG VIAL IVP SCH (07:04)
[2016-12-28] MEDS: SODIUM CHLORIDE FLUSH 0.9% 10 ML SYRINGE IVP SCH (07:09)
[2016-12-28] MEDS: ONDANSETRON 4 MG/2 ML VIAL IVP PRN (07:21)
[2016-12-28] MEDS: SODIUM CHLORIDE FLUSH 0.9% 10 ML SYRINGE IVP PRN (07:21)
[2016-12-28] MEDS ORDERED: CHOLECALCIFEROL 400 UNIT TABLET PO SCH (09:00)
[2016-12-28] MEDS ORDERED: SODIUM CHLORIDE 0.9% 1,000 ML IV ONE (09:15)
[2016-12-28] MEDS: PREGABALIN 100 MG CAPSULE PO SCH (10:09)
[2016-12-28] MEDS: DOCUSATE SODIUM 100 MG CAPSULE PO SCH (10:10)
[2016-12-28] MEDS: FOLIC ACID 1 MG TABLET PO SCH (10:10)
[2016-12-28] MEDS: FUROSEMIDE 20 MG TABLET PO SCH (10:10)
[2016-12-28] MEDS: FERROUS SULFATE 325 MG TABLET PO SCH (10:10)
[2016-12-28] MEDS: CALCIUM CARBONATE CHEW 500 MG TABLET PO SCH (10:10)
--- NOTE | 2016-12-28 11:00 | Discharge Plan ---
Discharge Plan Disposition: 01 Home, Self Care Condition: Stable Prescriptions: Potassium Chloride [Micro-K] 20 meq PO TID #30 capsule Diet: Regular Activity Restrictions: Activity as Tolerated Shower Restrictions: No Driving Restrictions: No Weight Bearing: Full Weight Additional Instructions or Follow Up instructions: Please continue to take your home medication as prescribed. You will need to followup with your primary care provider within the first week of discharge. You need to continue to take the potassium and over the counter magnesium supplements for nutritional support. Continue on a heart healthy diet. Add ensure or a vitamin source to your diet to avoid malnutrition. Take a stool softener if you become constipated. Get plenty of sleep throughout the day and try to take frequent nap breaks as needed Avoid soda and caffeine products. Walking and exercise will help improve your mood and muscle weakness. No Smoking: If you smoke, Please STOP! Call for help.
--- NOTE | 2016-12-28 11:26 | DISCHARGE SUMMARY ---
"Discharge Summary Admit Date: 12/27/16 Discharge Date: 12/28/16 Discharging Provider: Maral Garg APRN Code Status: Attempt Resuscitation Condition at Discharge: Good Discharge Disposition: 01 Home, Self Care Discharge Facility Name: Home - DIAGNOSES Admission Diagnoses: 1. Generalized weakness with mild dehydration 2. Intractable nausea with vomiting 3. Acute generalized weakness secondary to protein deficiency and malnutrition with low albumin 4. Chronic opiod usage secondary to chronic pain, multiple sites 5. Chronic malnutrition.likely causing anasarca. 6. Low magnesium level with other electrolyte imbalances 7. Acute on chronic weight loss unexpected Discharge Diagnoses with Status of Each Condition: 1. Generalized weakness with mild dehydration 2. Intractable nausea with vomiting 3. Acute generalized weakness secondary to protein deficiency and malnutrition with low albumin 4. Chronic opiod usage secondary to chronic pain, multiple sites 5. Chronic malnutrition.likely causing anasarca. 6. Low magnesium level with other electrolyte imbalances 7. Acute on chronic weight loss unexpected - HPI History of Present Illness: This patient presents to the emergency department after being discharged a few days ago. She complains of continued nausea, generalized weakness. she reports that when she left here a few days ago, that all of her medications were locked in her niece's trunk, and that she has not been able to take any of her medi medications since then.there apparently is a lot of familytrauma going on, and no one wanted to break open the trunk. The patient reports she has been eating well, but today, while walking across a street,fainted, and was brought to the ER. She says she has been feeling weak, and she'll, and dizzy. Her throat has been a little sore. She sometimes feels mildly short of breath. She only vomits if she takes narcotics without Zofran. Otherwise,she has not had documented fever, headache, cough, chest pain, nausea or vomiting, diarrhea or constipation, dysuria. she reports that in [place], they have been telling her she needs to live in assisted living, but she has been resisting. She now says, perhaps she cannot take care of herself. - CONSULTS | PROCEDURES Consultations: nutrition Procedures: none - HOSPITAL COURSE Hospital Course: Patient is a 46 year old woman with history of anasarca, fibromyalgia, weakness , malnurition. She was admitted for weakness and poor nutrition with electrolyte imbalance with hypokalemia, low magnesium, low sodium and protein deficit. She was given IVF for gently hydration, replaced her potassium and magnesium levels with IV medications. She received a banana bag x 2 for other nutritional support. She has chronic pain and continued on her home dosage of MSContin at home dosages. She Continued on Elavil for insomnia and on Lyrica for neurological pain and peripheral neuropathy. She continued on Meclizine for occasional vertigo. She has GERD and continued on PPI for GERD, protonix. She improved over two day stay. Magnesium was 2.6 and potassium >3.5 at day of discharge. She was given counseling by nursing and nutrition for protein deficiency and instructed to eat a diet high in protein and fluids. On day of discahrge she will be going home with family, gino before going back to [place]. She requested a letter regarding stay in the hospital for her trip back home. DVT prophylaxis, history of DVT.: Continue XARELTO. - ALLERGIES Allergies/Adverse Reactions: Allergies Allergy/AdvReac Type Severity Reaction Status Date / Time No Known Drug Allergies Allergy Verified 12/26/16 16:52 - MEDICATIONS Home Medications: Ambulatory Orders Medication Instructions Recorded Confirmed Amitriptyline HCl 25 mg PO QPM 12/21/16 12/27/16 Calcium Carbonate/Vitamin D3 1 each PO BID 12/21/16 12/27/16 [Calcium 500-Vit D3 200 Tablet] Docusate Sodium [Stool Softener] 100 mg PO BID 12/21/16 12/27/16 Esomeprazole Magnesium 40 mg PO DAILY 12/21/16 12/27/16 Ferrous Sulfate 325 mg PO TID 12/21/16 12/27/16 Folic Acid 1 mg PO DAILY 12/21/16 12/27/16 Meclizine HCl 25 mg PO TID PRN 12/21/16 12/27/16 Morphine Sulfate 60 mg PO BID 12/21/16 12/27/16 Potassium Chloride Oral Soln 20 meq PO DAILY 12/21/16 12/27/16 Pregabalin [Lyrica] 200 mg PO BID 12/21/16 12/27/16 Rivaroxaban [Xarelto] 20 mg PO QPM 12/21/16 12/27/16 Thiamine HCl [Vitamin B-1] 100 mg PO DAILY 12/21/16 12/27/16 Furosemide [Lasix] 40 mg PO DAILY #30 tablet 12/24/16 12/27/16 Amitriptyline [Elavil] 25 mg PO QPM tablet 12/28/16 Calcium Carbonate [Tums (Calcium 500 mg PO BID tablet 12/28/16 Carbonate 500mg)] Meclizine [Antivert] 25 mg PO TID tablet 12/28/16 Morphine ER 30 mg PO Q6HR tablet 12/28/16 Morphine ER 60 mg PO Q12H tablet 12/28/16 Potassium Chloride [Micro-K] 20 meq PO TID #30 capsule 12/28/16 - PHYSICAL EXAM AT DISCHARGE General Appearance: positive: No acute distress, Alert Eyes Bilateral: positive: Normal inspection, PERRL, EOMI ENT: positive: Pharynx nml, No signs of dehydration Neck: positive: Nml inspection, Thyroid nml, No JVD, Trachea midline Respiratory: positive: Chest non-tender, No respiratory distress, Breath sounds nml Cardiovascular: positive: Regular rate & rhythm, No murmur, No gallop Peripheral Pulses: positive: 2+ Abdomen: positive: No organomegaly, Nml bowel sounds, No distention. negative: Guarding, Rebound Back: positive: Nml inspection Skin: positive: Color nml, No rash, Warm, Dry Extremities: positive: Full ROM, No pedal edema. negative: Calf tenderness Neurologic/Psychiatric: positive: Oriented x3, CN's nml (2-12), Motor nml, Sensation nml, Mood/affect nml, Weakness - LABS Result Diagrams: 12/28/16 05:39 12/28/16 05:39 Other Lab Results: Laboratory Results - last 24 hr 12/27/16 12/27/16 12/27/16 05:55 05:55 05:55 WBC RBC 2.92 L Hgb Hct MCV MCH MCHC RDW Plt Count MPV Reticulocyte % (Auto) 1.56 Neut # Lymph # [place] # Eos # Baso # Absolute Nucleated RBC Nucleated RBCs Absolute Retic 0.046 Sodium Potassium Chloride Carbon Dioxide Anion Gap BUN Creatinine Estimated GFR (MDRD) Glucose Calcium Magnesium Iron 45 TIBC 113 L % Saturation 40 Transferrin < 81 L Ferritin 112.1 Total Bilirubin AST ALT Alkaline Phosphatase Lactate Dehydrogenase Total Protein Albumin Globulin Albumin/Globulin Ratio Vitamin B12 865 12/28/16 12/28/16 12/28/16 05:39 05:39 05:39 WBC 12.5 H RBC 3.82 L Hgb 10.7 L Hct 33.4 L MCV 87.4 MCH 28.2 MCHC 32.2 RDW 15.4 H Plt Count 163 MPV 9.8 Reticulocyte % (Auto) Neut # 8.7 H Lymph # 2.8 [place] # 0.8 Eos # 0.1 Baso # 0.1 Absolute Nucleated RBC 0.00 Nucleated RBCs 0.0 Absolute Retic Sodium 136 Potassium 3.7 Chloride 101 Carbon Dioxide 27 Anion Gap 8.0 BUN 8 Creatinine 0.6 Estimated GFR (MDRD) 107 Glucose 114 H Calcium 7.7 L Magnesium 2.6 Iron TIBC % Saturation Transferrin Ferritin Total Bilirubin 1.2 H AST 35 ALT 53 Alkaline Phosphatase 99 Lactate Dehydrogenase 322 H Total Protein 4.5 L Albumin 2.1 L Globulin 2.4 Albumin/Globulin Ratio 0.9 L Vitamin B12 - FOLLOW UP Follow Up: Patient was instructed to followup with her primary care provider in [place]. She was visiting her brother in [place] when the symptoms started. She verbally understood these instructions. She was given a prescription for potassium and told to take over the counter magnesium for nutritional. support"
[2016-12-28] MEDS: MORPHINE ER 60 MG TABLET PO SCH (11:49)
[2016-12-28] MEDS: MULTIVITAMIN 10 ML, FOLIC ACID INJ 1 MG, THIAMINE INJ 100 MG, MAGNESIUM SULFATE 2 GM in... IV SCH ×5 (11:49)
== END 2016-12-28 14:33 | disposition home or self-care (01) | DRG 640 ==
LOC: EDUNIT# → ED 16:37 → OBS 20:26 → OBSVTOIN 12-27 09:03 → MS2 12-27 11:33
PROVIDERS: ADMIT Internal Medicine; ATTEND Nurse Practitioner
DX: E87.6 Hypokalemia (principal); E43 Unspecified severe protein-calorie malnutrition; E87.1 Hypo-osmolality and hyponatremia; E87.8 Other disorders of electrolyte and fluid balance, not elsewhere classified; G47.00 Insomnia, unspecified; Z68.28 Body mass index [BMI] 28.0-28.9, adult; E86.0 Dehydration; R33.9 Retention of urine, unspecified; H54.7 Unspecified visual loss; F43.10 Post-traumatic stress disorder, unspecified; F40.240 Claustrophobia; G89.29 Other chronic pain; M19.90 Unspecified osteoarthritis, unspecified site; Z79.02 Long term (current) use of antithrombotics/antiplatelets; M79.7 Fibromyalgia; Z86.718 Personal history of other venous thrombosis and embolism; Z87.01 Personal history of pneumonia (recurrent); Z86.73 Personal history of transient ischemic attack (TIA), and cerebral infarction without residual deficits; Z87.891 Personal history of nicotine dependence; G62.9 Polyneuropathy, unspecified; K21.9 Gastro-esophageal reflux disease without esophagitis; T50.3X6A Underdosing of electrolytic, caloric and water-balance agents, initial encounter; R11.2 Nausea with vomiting, unspecified; Z91.138 Patient's unintentional underdosing of medication regimen for other reason; Z79.891 Long term (current) use of opiate analgesic; Z79.899 Other long term (current) drug therapy
CPT/HCPCS: 36415; 80053; 81001; 82607; 82728; 83540; 83615; 83690; 83735; 84100; 84466; 85025; 85044; 87077; 87086; 96361; 96365; 96366; 96367; 96374; 96375; 96376; 99284; 99285